=== PATIENT | female | born 1940 | race Caucasian/White ===

== ENCOUNTER 2018-09-02 12:08 | Inpatient (IN) | payer OTHER ==
[2018-09-02] MEDS ORDERED: dilTIAZem HCL 125 MG/25 ML - 25 ML VIAL ONE (12:18)
--- NOTE | 2018-09-02 12:48 | PDOC ---
History of Present Illness - General History Source: Patient Exam Limitations: No Limitations <Valentin Almaguer - Last Filed: 09/02/18 13:25> - General History Source: Patient Exam Limitations: No Limitations <Agueda Ferraro - Last Filed: 09/02/18 14:03> - General Chief Complaint: Palpitations Stated Complaint: CHEST PAIN Time Seen by Provider: 09/02/18 12:17 - History of Present Illness Initial Comments: 09/02/18 13:01 The patient is a 78 year old female with a significant past medical history of Anemia, hypothyroidism, NIDDM, HLD, and HTN who present to the [facility] to the ED with one week of generalized weakness. As per patient she has been endorsing palpitations, shortness of breath, dehydration, and R arm pain radiating to her back, secondary to her symptoms. As per patient she went food shopping this morning and noticed that she could not catch her breath. The patient states, she quickly went to her PCP, Dr. Putnam, and was told to come to the ED after having an abnormal EKG and rapid Atrial fibrillation. Via EMS she received diltiazem 20mg IV x1, with rate control. The patient notes her chest discomfort, palpitations and SOB worsens when lying flat and alleviated when sitting up, usually sleeps with one pillow. Patient states she has a family history of CVA on maternal side (mom at 48). The patient denies taking any blood thinner, history of coronary disease or arrhythmias.. Denies fever, chills, dizziness, N, V, D, abdominal pain, bladder and bowel problems, leg swelling, No sick contacts or travel. No new changes in medications. No infectious or respiratory sx. Allergies: penicillins Past Medical History: Anemia, hypothyroidism, NIDDM, HLD, and HTN Social history: Lives with family. No smoking. No alcohol. No illicit drugs. Surgical history: None reported PCP: Cyrus Echavarria. (Valentin Almaguer) Past History <Valentin Almaguer - Last Filed: 09/02/18 13:25> - Past Medical History Anemia: Yes Asthma: No Cancer: No Cardiac Disorders: Yes (CAD, PALPITATION) CVA: No COPD: No CHF: No Dementia: No Diabetes: Yes (NIDDM) GI Disorders: No Disorders: No HTN: Yes Hypercholesterolemia: Yes Liver Disease: No Seizures: No Thyroid Disease: Yes (HYPO) - Suicide/Smoking/Psychosocial Hx Smoking History: Never smoked Have you smoked in the past 12 months: No Hx Alcohol Use: No Drug/Substance Use Hx: No Substance Use Type: None Hx Substance Use Treatment: No <Agueda Ferraro - Last Filed: 09/02/18 14:03> - Past Medical History Allergies/Adverse Reactions: Allergies Allergy/AdvReac Type Severity Reaction Status Date / Time Penicillins Allergy Intermediate Verified 09/02/18 12:12 Home Medications: Ambulatory Orders Atenolol [Tenormin -] 50 mg PO DAILY 10/12/14 Cyclobenzaprine HCl [Flexeril -] 10 mg PO TID PRN #21 tablet 10/12/14 Glimepiride 4 mg PO ASDIR 10/12/14 Levothyroxine [Synthroid -] 112 mcg PO DAILY 10/12/14 Naproxen [Naprosyn -] 500 mg PO BID PRN #14 tablet 10/12/14 Quinapril HCl [Accupril -] 10 mg PO DAILY 10/12/14 Simvastatin [Zocor -] 20 mg PO HS 10/12/14 metFORMIN HCL [Glucophage] 1,000 mg PO BID 10/12/14 Oxycodone HCl/Acetaminophen [Percocet 5-325 mg Tablet -] 1 combo PO Q6H PRN #14 tablet 10/19/14 Aspirin Coated [Ecotrin -] 81 mg PO DAILY 10/25/14 Cardiac Specific PMH - Complaint Specific PMHX Pacemaker: No <Agueda Ferraro - Last Filed: 09/02/18 14:03> Review of Systems - Review of Systems Able to Perform ROS?: Yes All Other Systems: Reviewed and Negative <Valentin Almaguer - Last Filed: 09/02/18 13:25> <Agueda Ferraro - Last Filed: 09/02/18 14:03> - Review of Systems Comments:: 09/02/18 13:02 Constitutional: (+) generalized weakness. no fevers or chills. HEENT: no headache or dizziness. No congestion. No visual/hearing disturbances. CVS: (+) palpitations. +chest pain. +palpitations. No syncope. Resp: (+)sob. +orthopnea. No cough. Gastrointestinal: no abdominal pain, nausea or vomiting. Genitourinary: no urinary sx, hematuria. MUSCULOSKELETAL: (+) R arm pain, back pain. No joint pain and swelling. No neck pain. SKIN: no redness or skin changes, no discharge, No wounds. +rash Hematologic: no easy bruising/bleeding. NEUROLOGIC: No headache, dizziness, LOC or altered mental status. No focal weakness, numbness or tingling. Allergic/Immunologic: pcn allergies. No environmental allergies. All other systems reviewed and negative, or as documented in HPI. (Valentin Almaguer) *Physical Exam <Valentin Almaguer - Last Filed: 09/02/18 13:25> <Agueda Ferraro - Last Filed: 09/02/18 14:03> - Vital Signs Last Vital Signs Temp Pulse Resp BP Pulse Ox 98.6 F 75 18 127/90 100 09/02/18 12:08 09/02/18 13:30 09/02/18 13:30 09/02/18 13:30 09/02/18 13:30 - Physical Exam Comments: 09/02/18 13:02 General: Well appearing, awake and alert, NAD. HEENT: (+) bilateral upper lid xanthelasma. NCAT, PERRL, EOMI, clear conjunctiva, anicteric, moist mucous membranes, clear oropharynx, no oral lesions. Neck: neck supple, FROM Resp: CTAB, normal and even respirations, no respiratory distress CVS: (+) irregular regular heart rhythm, no murmurs, 2+ peripheral pulses throughout, no peripheral edema Abdomen: soft, NTND, no peritoneal signs. Back: normal inspection and ROM. no midline tenderness. (+) point tenderness on R shoulder posterior scapula. MSK: no edema, BALLARD x4, ROM intact. No clubbing or cyanosis. normal bulk and tone. Extremities: no calf tenderness Neuro: alert, oriented appropriately; no focal neurologic deficits Skin:(+) excoriation and dry, nonvesicular/nonpruritic/nonpurulent rash on R mid thoracic region, warm and well perfused, cap refill <2 sec, normal color (RosinaValentin) Heart Score/ECG Review <Valentin Almaguer - Last Filed: 09/02/18 13:25> #1 ECG reviewed & interpreted by me at: 12:05 General ECG Interpretation: Normal Rate Compared to previous ECG there are: Changes noted <JasmineAgueda Bruno - Last Filed: 09/02/18 14:03> #1 09/02/18 12:55 EKG atrial fibrillation at 79 bpm, no interval abnormalities, narrow QRS, ST and T wave segments and morphology normal. Nonspecific T wave abnormalities/TWI in III only, no contiguous lead changes - changed from prior. (Agueda Ferraro) - Procedure Monitoring Vital Signs: Procedure Monitoring Vital Signs Temperature 98.6 F 09/02/18 12:08 Pulse Rate 75 09/02/18 13:30 Respiratory Rate 18 09/02/18 13:30 Blood Pressure 127/90 09/02/18 13:30 O2 Sat by Pulse Oximetry (%) 100 09/02/18 13:30 Procedures <Valentin Almaguer - Last Filed: 09/02/18 13:25> - Bedside Ultrasound Bedside Ultrasound: Cardiac <Agueda Ferraro - Last Filed: 09/02/18 14:03> - Bedside Ultrasound Remarks: 09/02/18 14:02 POCUS echo and thoracic exam performed and documented/saved, indication includes chest pain/dyspnea. views obtained (PSLA, PSS, A4, SX, IVC, bilateral lung short). Findings include normal EF on visual estimation, no pericardial or pleural effusion, primarily A lines, no FWMA, plethoric IVC with no collapse. Normal aortic root <4cm. RV<LV. Impression: no acute findings, arrhythmia/Afib noted. (Agueda Ferraro) ED Treatment Course - LABORATORY CBC & Chemistry Diagram: 09/02/18 12:53 09/02/18 12:53 <Valentin Almaguer - Last Filed: 09/02/18 13:25> - LABORATORY CBC & Chemistry Diagram: 09/02/18 12:53 09/02/18 12:53 <Agueda Ferraro - Last Filed: 09/02/18 14:03> - ADDITIONAL ORDERS Additional order review: Laboratory Results 09/02/18 09/02/18 09/02/18 12:53 12:53 12:53 PT with INR 13.70 H INR 1.16 H PTT (Actin FS) 27.4 Sodium 136 Potassium 4.9 Chloride 104 Carbon Dioxide 24 Anion Gap 8 BUN 24 H Creatinine 0.8 Creat Clearance w eGFR 69.74 Random Glucose 207 H Calcium 8.3 L Magnesium 1.9 Ferritin 7.3 L Total Bilirubin 0.6 AST 39 H ALT 46 Alkaline Phosphatase 112 Creatine Kinase 46 Troponin I 0.07 H B-Natriuretic Peptide 1996.5 H Total Protein 6.6 Albumin 3.3 L TSH 3.01 09/02/18 12:53 RBC 3.60 MCV 76.4 L MCHC 31.6 L RDW 18.1 H MPV 9.9 Neutrophils % 72.9 Lymphocytes % 18.3 Monocytes % 6.2 Eosinophils % 2.0 Basophils % 0.6 - RADIOLOGY Radiology Studies Ordered: Category Date Time Status CHEST X-RAY PORTABLE* [RAD] Stat Radiology 09/02/18 12:18 Taken - Medications Given in the ED: ED Medications Discontinued Medications Generic Name Dose Route Start Last Admin Trade Name Freq PRN Reason Stop Dose Admin Diltiazem HCl 60 mg 09/02/18 12:50 09/02/18 13:33 Cardizem - PO 09/02/18 12:51 60 mg ONCE ONE Administration Medical Decision Making <Valentin Almaguer - Last Filed: 09/02/18 13:25> - Critical Care Time Total Critical Care Time (minutes): 40 (rapid atrial fibrillation) Critical Care Statement: The care of this patient involved high complexity decision making to prevent further life threatening deterioration of the patient 's condition and/or to evaluate & treat vital organ system(s) failure or risk of failure. <Agueda Ferraro - Last Filed: 09/02/18 14:03> - Medical Decision Making 09/02/18 12:47 I, Agueda Ferraro MD, attest that this document has been prepared under my direction and personally reviewed by me in its entirety. I further attest, that it accurately reflects all work, treatment, procedures and medical decision -making performed by me. See HPI for details DDx chest pain: ACS, coronary vasospasm, NSTEMI, arrhythmia,Afib, unstable angina, Zoster, PE, dissection, PUD, esophageal spasm, GERD, gastritis, costochondritis, pneumonia, pleurisy, pericarditis/myocarditis. dehydration, electrolyte/metabolic derangements. clinically doubt PE or dissection with exam. no infectious sx to suggest flu or pna. rash on right side of thorax does not appear to be like zoster, noninfectious, no crusting or purulence or appearance suspicious for zoster rash. Vital signs reviewed, wnl. Afib rate controlled at 80 bpm on tele monitor Prior notes reviewed, including admissions, discharges and consultations. laboratory results and imaging reviewed, basic labs and lytes wnl, notable for: - anemia, per pt baseline Hb 9. today Hb 8.7/27.5 - with low MCV <80, c/w microcytic anemia. guaiac negative, send off anemia workup labs. pt states she has been anemic " all my life" and has a gene predisposing her to anemia (thalassemia), refused colonoscopy in the past CXR_ Cardiac panel_Positive trop 0.07, ASA administered. BNP also elevated, unclear if new onset cardiomyopathy as well or trop/bnp related to her new onset Afib. arrhythmia can lead to trop leak, +NSTEMI without EKG changes, trend. EKG atrial fibrillation at 79 bpm, no interval abnormalities, narrow QRS, ST and T wave segments and morphology normal. Nonspecific T wave abnormalities/TWI in III only, no contiguous lead changes - no prior. ED course: ASA, on fluids, given diltiazem by EMS for rate controlled. remains on tele monitor, rate controlled Afib <100 bpm. given PO diltiazem. CHADS VASC score 5, will need anticoagulation cards cs Dr Jonah licona echo with afib noted, normal EF on visual estimation, no effusion, RV<LV, normal Ao root. lung sliding present, A line profile and no effusion. Admit for new onset Afib, cards cs, AC, continued rate control, tele monitor, r/ o ACS given NSTEMI/Afib and full echo. Discussed results and management plan with pt and family member at bedside, agree with impression and plan 09/02/18 14:03 (Agueda Ferraro) *DC/Admit/Observation/Transfer <Valentin Almaguer - Last Filed: 09/02/18 13:25> - Discharge Dispostion Decision to Admit order: Yes <Agueda Ferraro - Last Filed: 09/02/18 14:03> Diagnosis at time of Disposition: NSTEMI (non-ST elevated myocardial infarction) Atrial fibrillation Qualifiers: Atrial fibrillation type: unspecified Qualified Code(s): I48.91 - Unspecified atrial fibrillation - Discharge Dispostion Condition at time of disposition: Guarded Decision to Admit order Date/Time: Decision to Admit Order Category Date Time Status Decision to Admit to Hospital Routine Admission 09/02/18 14:01 Ordered 09/02/18 14:02 (Agueda Ferraro) - Referrals Referrals: Cyrus Putnam MD [Primary Care Provider] - - Attestations Scribe Attestion: 09/02/18 13:02 Documentation prepared by Valentin Almaguer, acting as medical microbiologist for Agueda Ferraro MD, MD (Valentin Almaguer)
[2018-09-02] MEDS ORDERED: dilTIAZem HCL 60 MG TABLET (FP) PO ONE (12:50)
[2018-09-02 13:01] LABS: BASO % 0.6 % (0-2.0); HEMATOCRIT 27.5 % (32.4-45.2); HEMOGLOBIN 8.7 GM/dL (10.7-15.3); LYMPH % 18.3 % (8-40); MCH 24.1 pg (25.7-33.7); MCHC 31.6 g/dl (32.0-36.0); MEAN CELL VOLUME 76.4 fl (80-96); MEAN PLT VOLUME 9.9 fl (7.5-11.1); MONO % 6.2 % (3.8-10.2); NEUT % 72.9 % (42.8-82.8); PLATELET COUNT 287 K/MM3 (134-434); RDW 18.1 % (11.6-15.6); WHITE BLOOD COUNT 5.7 K/mm3 (4.0-10.0)
[2018-09-02 13:21] LABS: INR 1.16 (0.83-1.09); PROTHROMBIN TIME (PATIENT) 13.7 SEC (9.7-13.0)
[2018-09-02 13:24] LABS: ACTIVATED PTT 27.4 SECONDS (25.2-36.5)
[2018-09-02] MEDS ORDERED: dilTIAZem HCL 60 MG TABLET (FP) ONE ×2 (13:25→19:01)
[2018-09-02 13:38] LABS: ALBUMIN 3.3 g/dl (3.4-5.0); ALK PHOS 112 U/L (45-117); ANION GAP 8 MMOL/L (8-16); BILIRUBIN,TOTAL 0.6 mg/dL (0.2-1); BLOOD UREA NITROGEN 24 mg/dL (7-18); CALCIUM 8.3 mg/dL (8.5-10.1); CHLORIDE 104 mmol/L (98-107); CO2 24 mmol/L (21-32); CREATININE 0.8 mg/dL (0.55-1.3); GLUCOSE,RANDOM 207 mg/dL (74-106); MAGNESIUM 1.9 mg/dL (1.8-2.4); N-TERMINAL BNP 1996.5 pg/ml (5-450); POTASSIUM 4.9 mmol/L (3.5-5.1); SGOT/AST 39 U/L (15-37); SGPT/ALT 46 U/L (13-61); SODIUM 136 mmol/L (136-145); TOT PROT 6.6 g/dl (6.4-8.2)
[2018-09-02] MEDS ORDERED: ASPIRIN 81 MG CHEWABLE TABLETS PO ONE (13:40)
[2018-09-02] MEDS ORDERED: dilTIAZem HCL 50 MG/10 ML - 10 ML VIAL IVPUSH ONE (14:00)
[2018-09-02] MEDS ORDERED: ASPIRIN 81 MG CHEWABLE TABLETS ONE (14:06)
[2018-09-02] MEDS ORDERED: dilTIAZem HCL 50 MG/10 ML - 10 ML VIAL ONE (14:06)
--- NOTE | 2018-09-02 14:41 | CON.CARD ---
Consult Consult Specialty:: Cardiology Referred by:: Medicine Reason for Consultation:: afib - History of Present Illness Chief Complaint: dyspnea, palpitations History of Present Illness: 78F h/o anemia, hypothyroidism, DM, HLD, HTN p/w weakness, palps, dyspnea. Started a week ago, feeling palps, dyspnea, R arm pain radiating to the back. Also dyspnea worse with lying down. Was walking this morning and felt short of breath, went to see Dr. Putnam and was in afib with RVR. Received diltiazem 20mg IV x1 by EMS with rate improved, received PO diltiazem here with improved rate control. Currently no complaints, no chest pain, palps, dizziness, lightheadedness, dyspnea. - History Source History Provided By: Patient - Alcohol/Substance Use Hx Alcohol Use: No - Smoking History Smoking history: Never smoked Have you smoked in the past 12 months: No Home Medications - Allergies Allergies/Adverse Reactions: Allergies Allergy/AdvReac Type Severity Reaction Status Date / Time Penicillins Allergy Intermediate Verified 09/02/18 12:12 - Home Medications Home Medications: Ambulatory Orders Atenolol [Tenormin -] 50 mg PO DAILY 10/12/14 Cyclobenzaprine HCl [Flexeril -] 10 mg PO TID PRN #21 tablet 10/12/14 Glimepiride 4 mg PO ASDIR 10/12/14 Levothyroxine [Synthroid -] 112 mcg PO DAILY 10/12/14 Naproxen [Naprosyn -] 500 mg PO BID PRN #14 tablet 10/12/14 Quinapril HCl [Accupril -] 10 mg PO DAILY 10/12/14 Simvastatin [Zocor -] 20 mg PO HS 10/12/14 metFORMIN HCL [Glucophage] 1,000 mg PO BID 10/12/14 Oxycodone HCl/Acetaminophen [Percocet 5-325 mg Tablet -] 1 combo PO Q6H PRN #14 tablet 10/19/14 Aspirin Coated [Ecotrin -] 81 mg PO DAILY 10/25/14 Family Disease History - Family Disease History Family History: Unremarkable Review of Systems - Review of Systems Constitutional: reports: No Symptoms Eyes: reports: No Symptoms HENT: reports: No Symptoms Neck: reports: No Symptoms Cardiovascular: reports: No Symptoms Respiratory: reports: No Symptoms Gastrointestinal: reports: No Symptoms Genitourinary: reports: No Symptoms Musculoskeletal: reports: No Symptoms Integumentary: reports: No Symptoms Neurological: reports: No Symptoms Endocrine: reports: No Symptoms Hematology/Lymphatic: reports: No Symptoms Psychiatric: reports: No Symptoms Vital Signs: Vital Signs Temperature 98.6 F 09/02/18 12:08 Pulse Rate 75 09/02/18 13:30 Respiratory Rate 18 09/02/18 13:30 Blood Pressure 127/90 09/02/18 13:30 O2 Sat by Pulse Oximetry (%) 100 09/02/18 13:30 Constitutional: Yes: Well Nourished, No Distress, Calm Eyes: Yes: Conjunctiva Clear, EOM Intact HENT: Yes: Atraumatic, Normocephalic Neck: Yes: Supple, Trachea Midline Respiratory: Yes: Regular, CTA Bilaterally Gastrointestinal: Yes: Normal Bowel Sounds, Soft Cardiovascular: Yes: Pulse Irregular JVD: No Carotid Bruit: No PMI: Non-Displaced Heart Sounds: Yes: S1, S2 Murmur: No: Systolic Murmur Musculoskeletal: No: Back Pain Extremities: No: Cold Edema: No Peripheral Pulses WNL: Yes Peripheral Pulses: 2+ Left Doralis Pedis, 2+ Right Dorsalis Pedis Integumentary: No: Jaundice Neurological: Yes: Alert, Oriented Psychiatric: No: Agitated - Other Data Labs, Other Data: CBC, BMP 09/02/18 12:53 09/02/18 12:53 INR, PTT INR 1.16 (0.83-1.09) H 09/02/18 12:53 Troponin, BNP 09/02/18 12:53 Troponin I 0.07 H B-Natriuretic Peptide 1996.5 H Troponin, BNP 09/02/18 12:53 Troponin I 0.07 H B-Natriuretic Peptide 1996.5 H Assessment/Plan EKG: afib rate 79 bpm, no ischemic changes CXR: no acute process tele: afib with rate 130s earlier today, now afib with rate 80s 78F h/o anemia, hypothyroidism, DM, HLD, HTN p/w weakness, palps, dyspnea afib - rate controlled after receiving IV and PO dilt - continue home atenolol, start diltiazem 60 mg PO Q6H - if rate okay, transition to daily dosing of long acting diltiazem in AM - [id number] 5 - start eliquis 5 mg BID, advised patient and family members of risk of bleeding, agree to start anticoagulation Shortness of breath, right arm pain, elevated BNP - EKG no ischemic changes, trop indeterminate - less likely ACS - echo ordered - now resolved with rate controlled - euvolemic on exam, defer diuretics at this point anemia - reportedly at baseline - close monitoring H/H as outpatient as she is starting AC HTN - stable continue current meds HLD - cont statin
[2018-09-02] MEDS ORDERED: ACETAMINOPHEN 325 MG TABLET (FP) PO PRN (15:39)
--- NOTE | 2018-09-02 15:55 | HP ---
Admitting History and Physical - Primary Care Physician PCP: Cyrus Putnam - Admission Chief Complaint: I felt sick History of Present Illness: Mrs Garcia is a very pleasant 78 year old female who comes in from Dr Putnam' s office for new onset atrial fibrillation. She states that at the beginning of the week she began to feel tired and short of breath. She says that she felt it mainly on exertion but sometimes at rest. However Wednesday night she woke up with severe shortness of breath, chest pressure, diaphoresis, and a sense of impending doom. She does not know how long it lasted but decided to go back to sleep. After this her symptoms became progressively worse. She became lightheaded and short of breath on minimal exertion, but she did not pass out. She had chest pressure on exertion as well. She also felt short of breath when lying down and this improved with her sitting up. She felt extremely fatigued and weak all the time and this did not improve with sleep. She was at the store today doing food shopping where she felt like she was almost going to pass out, so she went to see Dr Putnam for evaluation and was found to have atrial fibrillation. She was sent over for further evaluation. Here she received aspirin and diltiazem and now says she feels back to normal. She denies fevers, chills, coughing, abdominal pain, nausea, vomiting, diarrhea, constipation, difficulty or pain on urination, or swelling. History Source: Patient Limitations to Obtaining History: No Limitations - Past Medical History Cardiovascular: Yes: HTN, Hyperlipdemia Rheumatology: Yes: Lupus (dormant) Endocrine: Yes: Hypothyroidism - Past Surgical History Past Surgical History: Yes: None - Smoking History Smoking history: Never smoked Have you smoked in the past 12 months: No - Alcohol/Substance Use Hx Alcohol Use: No History of Substance Use: reports: None - Social History Usual Living Arrangement: Yes: With Spouse ADL: Independent History of Recent Travel: No Home Medications - Allergies Allergies/Adverse Reactions: Allergies Allergy/AdvReac Type Severity Reaction Status Date / Time Penicillins Allergy Intermediate Verified 09/02/18 12:12 - Home Medications Home Medications: Ambulatory Orders Atenolol [Tenormin -] 50 mg PO DAILY 10/12/14 Cyclobenzaprine HCl [Flexeril -] 10 mg PO TID PRN #21 tablet 10/12/14 Glimepiride 4 mg PO ASDIR 10/12/14 Levothyroxine [Synthroid -] 112 mcg PO DAILY 10/12/14 Naproxen [Naprosyn -] 500 mg PO BID PRN #14 tablet 10/12/14 Quinapril HCl [Accupril -] 10 mg PO DAILY 10/12/14 Simvastatin [Zocor -] 20 mg PO HS 10/12/14 metFORMIN HCL [Glucophage] 1,000 mg PO BID 10/12/14 Oxycodone HCl/Acetaminophen [Percocet 5-325 mg Tablet -] 1 combo PO Q6H PRN #14 tablet 10/19/14 Aspirin Coated [Ecotrin -] 81 mg PO DAILY 10/25/14 Family Disease History - Family Disease History Family Disease History: Other: Sister (renal failure) Other Family History: multiple family members with acute CVA Review of Systems Findings/Remarks: Full review of systems obtained, as per HPI and otherwise negative. Physical Examination Vital Signs: Vital Signs Temperature 37.0 C 09/02/18 12:08 Pulse Rate 75 09/02/18 13:30 Respiratory Rate 18 09/02/18 13:30 Blood Pressure 127/90 09/02/18 13:30 O2 Sat by Pulse Oximetry (%) 100 09/02/18 13:30 Constitutional: Yes: Well Nourished, No Distress, Calm Eyes: Yes: Conjunctiva Clear, EOM Intact, PERRL HENT: Yes: Atraumatic, Normocephalic Cardiovascular: Yes: Pulse Irregular. No: Tachycardia, Gallop, Murmur, Rub Respiratory: Yes: Regular, CTA Bilaterally. No: Rales, Rhonchi, Wheezes Gastrointestinal: Yes: Normal Bowel Sounds, Soft. No: Distention, Tenderness Extremities: Yes: WNL Edema: No Labs: CBC, BMP 09/02/18 12:53 09/02/18 12:53 Imaging - Results Chest X-ray: Report Reviewed, Image Reviewed EKG: Image Reviewed Problem List - Problems (1) Atrial fibrillation Assessment/Plan: -new onset symptomatic atrial fibrillation with rvr -currently rate controlled after diltiazem -case d/w Dr Mckenzie -admit to telemetry -cardiac enzymes x3, first set negative -ECHO ordered -start diltiazem 60mg q6h and eliquis 5mg bid Code(s): I48.91 - UNSPECIFIED ATRIAL FIBRILLATION Qualifiers: Atrial fibrillation type: unspecified Qualified Code(s): I48.91 - Unspecified atrial fibrillation (2) HTN (hypertension) Assessment/Plan: -on atenolol and quinapril as an outpatient -stop atenolol -continue quinapril -started on diltiazem -monitor, if becomes hypotensive will stop quinapril Code(s): I10 - ESSENTIAL (PRIMARY) HYPERTENSION (3) HLD (hyperlipidemia) Assessment/Plan: -check lipid panel in am -continue statin Code(s): E78.5 - HYPERLIPIDEMIA, UNSPECIFIED (4) Hypothyroid Assessment/Plan: -check TSH and FT4 -continue levothyroxine 112 mcg currently Code(s): E03.9 - HYPOTHYROIDISM, UNSPECIFIED (5) Diabetes Assessment/Plan: -continue metformin -diabetic diet -monitor glucose on bmp Code(s): E11.9 - TYPE 2 DIABETES MELLITUS WITHOUT COMPLICATIONS (6) Anemia Assessment/Plan: -patient says chronic -monitor since starting eliquis -follow up anemia labs Code(s): D64.9 - ANEMIA, UNSPECIFIED (7) Lupus Assessment/Plan: -dormant per patient Code(s): M32.9 - SYSTEMIC LUPUS ERYTHEMATOSUS, UNSPECIFIED
[2018-09-02] MEDS ORDERED: metFORMIN HCL 500 MG TABLET (FP) ONE ×2 (17:11→17:25)
[2018-09-02] MEDS: GLIMEPIRIDE 4 MG TABLET (FP) PO SCH (17:29)
[2018-09-02] MEDS: metFORMIN HCL 500 MG TABLET (FP) PO SCH (17:29)
[2018-09-02] MEDS: dilTIAZem HCL 60 MG TABLET (FP) PO SCH ×2 (19:16→23:04)
[2018-09-02] MEDS: ATORVASTATIN CA 10 MG TABLET (FP) PO SCH (22:14)
[2018-09-02] MEDS: APIXABAN 5 MG TABLET PO SCH (22:14)
[2018-09-03 04:12] LABS: SERUM IRON SATURATION 5 % (15-55); TOTAL IRON BINDING CAPACITY 378 ug/dL (250-450); UIBC 359 ug/dL (118-369)
[2018-09-03] MEDS: LEVOTHYROXINE NA 112 MCG TABLET (FP) PO SCH (06:22)
[2018-09-03] MEDS: metFORMIN HCL 500 MG TABLET (FP) PO SCH ×2 (06:22→17:43)
[2018-09-03] MEDS: GLIMEPIRIDE 4 MG TABLET (FP) PO SCH ×2 (06:22→17:44)
[2018-09-03] MEDS: dilTIAZem HCL 60 MG TABLET (FP) PO SCH ×4 (06:23→23:03)
[2018-09-03 07:31] LABS: BASO % 0.5 % (0-2.0); EOS % 3.5 % (0-4.5); HEMATOCRIT 24.2 % (32.4-45.2); HEMOGLOBIN 7.7 GM/dL (10.7-15.3); MCH 24.1 pg (25.7-33.7); MCHC 31.9 g/dl (32.0-36.0); MEAN CELL VOLUME 75.5 fl (80-96); MEAN PLT VOLUME 10.4 fl (7.5-11.1); MONO % 8.8 % (3.8-10.2); NEUT % 61.2 % (42.8-82.8); PLATELET COUNT 203 K/MM3 (134-434); RBC 3.21 M/mm3 (3.60-5.2); WHITE BLOOD COUNT 5.8 K/mm3 (4.0-10.0)
[2018-09-03 08:00] LABS: ANION GAP 7 MMOL/L (8-16); BLOOD UREA NITROGEN 20 mg/dL (7-18); CHLORIDE 106 mmol/L (98-107); CHOLESTEROL 88 mg/dL (50-200); CO2 26 mmol/L (21-32); CREATININE 0.6 mg/dL (0.55-1.3); GLUCOSE,RANDOM 95 mg/dL (74-106); HDL CHOLESTEROL 27 mg/dL (40-60); MAGNESIUM 1.8 mg/dL (1.8-2.4); PHOSPHOROUS 4.2 mg/dL (2.5-4.9); POTASSIUM 4.2 mmol/L (3.5-5.1); SODIUM 139 mmol/L (136-145); TRIGLYCERIDES 79 mg/dL (0-150)
[2018-09-03] MEDS ORDERED: QUINAPRIL HCL 10 MG TABLET (FP) PO SCH (10:00)
--- NOTE | 2018-09-03 10:01 | PN ---
Progress Note (short form) - Note Progress Note: s: occasional palps. no chest pain, dyspnea, orthopnea, chest pain no cigs Current Medications Acetaminophen (Tylenol -) 650 mg PO Q4H PRN PRN Reason: FEVER Apixaban (Eliquis -) 5 mg PO BID [facility] Last Admin: 09/02/18 22:14 Dose: 5 mg Atorvastatin Calcium (Lipitor -) 10 mg PO HS [facility] Last Admin: 09/02/18 22:14 Dose: 10 mg Diltiazem HCl (Cardizem -) 60 mg PO Q6HPO [facility] Last Admin: 09/03/18 06:23 Dose: 60 mg Glimepiride (Amaryl -) 4 mg PO BIDAC [facility] Last Admin: 09/03/18 06:22 Dose: 4 mg Levothyroxine Sodium (Synthroid -) 112 mcg PO DAILY@0700 [facility] Last Admin: 09/03/18 06:22 Dose: 112 mcg Metformin HCl (Glucophage -) 1,000 mg PO BIDAC [facility] Last Admin: 09/03/18 06:22 Dose: 1,000 mg Vital Signs Period Temp Pulse Resp BP Sys/Crandall Pulse Ox Last 24 Hr 97.9 F-98.6 F 75-151 18-20 110-151/59-96 99-100 Constitutional: Yes: Well Nourished, No Distress, Calm Eyes: Yes: Conjunctiva Clear, EOM Intact HENT: Yes: Atraumatic, Normocephalic Neck: Yes: Supple, Trachea Midline Respiratory: Yes: Regular, CTA Bilaterally Gastrointestinal: Yes: Normal Bowel Sounds, Soft Cardiovascular: Yes: Pulse Irregular JVD: No Carotid Bruit: No PMI: Non-Displaced Heart Sounds: Yes: S1, S2 Murmur: No: Systolic Murmur Musculoskeletal: No: Back Pain Extremities: No: Cold Edema: No Peripheral Pulses WNL: Yes Peripheral Pulses: 2+ Left Doralis Pedis, 2+ Right Dorsalis Pedis Integumentary: No: Jaundice Neurological: Yes: Alert, Oriented Psychiatric: No: Agitated Assessment/Plan EKG: afib rate 79 bpm, no ischemic changes CXR: no acute process tele: afib with rate 90s-100s, episodes of RVR to 150s 78F h/o anemia, hypothyroidism, DM, HLD, HTN p/w weakness, palps, dyspnea afib - rate controlled after receiving IV and PO dilt - episodes of RVR on tele, patient complaining of palps - continue diltiazem 60 mg PO Q6H, start metoprolol succinate 25 mg BID for improved rate control - [id number] - start eliquis 5 mg BID, advised patient and family members of risk of bleeding, agree to start anticoagulation elevated trop - EKG no ischemic changes, trop indeterminate range with flat trend - less likely ACS - echo pending Shortness of breath, right arm pain, elevated BNP - echo ordered - now resolved with rate controlled - euvolemic on exam, defer diuretics at this point anemia - H/H 8.7/27.5->7.7/24.2 today - has not been worked up in the past - cont eliquis, discussed with Dr. Haley - IV iron infusion, considering GI workup patient has refused in the past, d/w patient importance of anemia workup given indication for AC HTN - stopped home quinapril, monitoring on metoprolol and diltiazem HLD - cont statin
[2018-09-03] MEDS: APIXABAN 5 MG TABLET PO SCH ×2 (10:22→23:03)
--- NOTE | 2018-09-03 10:54 | PN ---
Progress Note, Physician Chief Complaint: Ms Garcia is still feeling weak and tired today. Denies cp, sob, n/v. - Current Medication List Current Medications: Active Medications Acetaminophen (Tylenol -) 650 mg PO Q4H PRN PRN Reason: FEVER Apixaban (Eliquis -) 5 mg PO BID [facility] Last Admin: 09/03/18 10:22 Dose: 5 mg Atorvastatin Calcium (Lipitor -) 10 mg PO HS [facility] Last Admin: 09/02/18 22:14 Dose: 10 mg Diltiazem HCl (Cardizem -) 60 mg PO Q6HPO [facility] Last Admin: 09/03/18 06:23 Dose: 60 mg Glimepiride (Amaryl -) 4 mg PO BIDAC [facility] Last Admin: 09/03/18 06:22 Dose: 4 mg Iron Sucrose 200 mg/ Sodium (Chloride) 100 mls @ 200 mls/hr IVPB ONCE ONE Stop: 09/03/18 11:29 Levothyroxine Sodium (Synthroid -) 112 mcg PO DAILY@0700 [facility] Last Admin: 09/03/18 06:22 Dose: 112 mcg Metformin HCl (Glucophage -) 1,000 mg PO BIDAC [facility] Last Admin: 09/03/18 06:22 Dose: 1,000 mg Metoprolol Succinate (Toprol Xl -) 25 mg PO BID [facility] Pantoprazole Sodium (Protonix -) 40 mg PO DAILY [facility] - Objective Vital Signs: Vital Signs Temperature 36.6 C 09/03/18 06:00 Pulse Rate 133 H 09/03/18 08:56 Respiratory Rate 18 09/03/18 09:00 Blood Pressure 121/96 09/03/18 08:56 O2 Sat by Pulse Oximetry (%) 99 09/03/18 09:00 Constitutional: Yes: Well Nourished, No Distress, Calm Cardiovascular: Yes: Tachycardia, Pulse Irregular. No: Gallop, Murmur, Rub Respiratory: Yes: Regular, CTA Bilaterally. No: Rales, Rhonchi, Wheezes Gastrointestinal: Yes: Normal Bowel Sounds, Soft. No: Distention, Tenderness Extremities: Yes: WNL Edema: No Labs: CBC, BMP 09/03/18 05:30 09/03/18 05:30 INR, PTT INR 1.16 (0.83-1.09) H 09/02/18 12:53 Problem List - Problems (1) Atrial fibrillation Code(s): I48.91 - UNSPECIFIED ATRIAL FIBRILLATION Qualifiers: Atrial fibrillation type: unspecified Qualified Code(s): I48.91 - Unspecified atrial fibrillation (2) HTN (hypertension) Code(s): I10 - ESSENTIAL (PRIMARY) HYPERTENSION (3) HLD (hyperlipidemia) Code(s): E78.5 - HYPERLIPIDEMIA, UNSPECIFIED (4) Hypothyroid Code(s): E03.9 - HYPOTHYROIDISM, UNSPECIFIED (5) Diabetes Code(s): E11.9 - TYPE 2 DIABETES MELLITUS WITHOUT COMPLICATIONS (6) Anemia Code(s): D64.9 - ANEMIA, UNSPECIFIED (7) Lupus Code(s): M32.9 - SYSTEMIC LUPUS ERYTHEMATOSUS, UNSPECIFIED Assessment/Plan (1) Atrial fibrillation Assessment/Plan: -case d/w Dr Mckenzie -will add toprol xl 25mg bid -continue diltiazem -continue eliquis at this point Code(s): I48.91 - UNSPECIFIED ATRIAL FIBRILLATION Qualifiers: Atrial fibrillation type: unspecified Qualified Code(s): I48.91 - Unspecified atrial fibrillation (2) HTN (hypertension) Assessment/Plan: -stop quinapril -continue diltiazem and addition of toprol as above Code(s): I10 - ESSENTIAL (PRIMARY) HYPERTENSION (3) HLD (hyperlipidemia) Assessment/Plan: -continue lipitor Code(s): E78.5 - HYPERLIPIDEMIA, UNSPECIFIED (4) Hypothyroid Assessment/Plan: -continue levothyroxine Code(s): E03.9 - HYPOTHYROIDISM, UNSPECIFIED (5) Diabetes Assessment/Plan: -continue metformin -diabetic diet -monitor glucose on bmp Code(s): E11.9 - TYPE 2 DIABETES MELLITUS WITHOUT COMPLICATIONS (6) Anemia Assessment/Plan: -case d/w Dr Putnam -anemia is not chronic -patient has declined work up in past -now with significant iron deficiency anemia -d/w patient that she will need GI work up since on eliquis -she is reluctant but listened -will give IV iron today, patient said she could not tolerate po iron -check stool for occult blood as well Code(s): D64.9 - ANEMIA, UNSPECIFIED (7) Lupus Assessment/Plan: -dormant per patient Code(s): M32.9 - SYSTEMIC LUPUS ERYTHEMATOSUS, UNSPECIFIED
[2018-09-03] MEDS ORDERED: IRON SUCROSE INJECTION 200 MG in SODIUM CHLORIDE 90 ML IVPB ONE (11:00)
[2018-09-03] MEDS: metoPROLOL SUCCINATE 25 MG TAB.SR.24H (FP) PO SCH ×2 (12:23→23:03)
[2018-09-03] MEDS: PANTOPRAZOLE 40 MG TABLET (FP) PO SCH (12:23)
--- NOTE | 2018-09-03 17:12 | EKG ---
Test Reason : Blood Pressure : / mmHG Vent. Rate : 079 BPM Atrial Rate : 258 BPM P-R Int : 000 ms QRS Dur : 084 ms QT Int : 404 ms P-R-T Axes : 000 022 073 degrees QTc Int : 463 ms ATRIAL FIBRILLATION ABNORMAL ECG WHEN COMPARED WITH ECG OF 26-NOV-2000 08:31, ATRIAL FIBRILLATION HAS REPLACED SINUS RHYTHM NONSPECIFIC T WAVE ABNORMALITY NOW EVIDENT IN LATERAL LEADS QT HAS LENGTHENED Confirmed by BAIRON JAIMES, RUTHIE ([id number]) on 09/03/2018 5:12:10 PM Referred By: Confirmed By:RUTHIE WADDELL MD
[2018-09-03] MEDS: METOPROLOL TARTRATE 5 MG/5 ML VIAL IVPUSH PRN (18:39)
[2018-09-03] MEDS: ATORVASTATIN CA 10 MG TABLET (FP) PO SCH (23:03)
[2018-09-04] MEDS: metFORMIN HCL 500 MG TABLET (FP) PO SCH ×2 (06:39→16:59)
[2018-09-04] MEDS: GLIMEPIRIDE 4 MG TABLET (FP) PO SCH ×2 (06:39→16:59)
[2018-09-04] MEDS: LEVOTHYROXINE NA 112 MCG TABLET (FP) PO SCH (06:39)
[2018-09-04] MEDS: dilTIAZem HCL 60 MG TABLET (FP) PO SCH ×3 (06:39→17:01)
[2018-09-04 07:39] LABS: BASO % 0.8 % (0-2.0); EOS % 3.2 % (0-4.5); HEMATOCRIT 26.3 % (32.4-45.2); HEMOGLOBIN 8.3 GM/dL (10.7-15.3); LYMPH % 24.9 % (8-40); MCH 24.1 pg (25.7-33.7); MCHC 31.6 g/dl (32.0-36.0); MEAN CELL VOLUME 76.3 fl (80-96); MEAN PLT VOLUME 10.8 fl (7.5-11.1); MONO % 8.9 % (3.8-10.2); NEUT % 62.2 % (42.8-82.8); PLATELET COUNT 228 K/MM3 (134-434); RBC 3.45 M/mm3 (3.60-5.2); RDW 18.2 % (11.6-15.6); WHITE BLOOD COUNT 5.3 K/mm3 (4.0-10.0)
[2018-09-04 07:45] LABS: ALBUMIN 3.2 g/dl (3.4-5.0); ALK PHOS 89 U/L (45-117); ANION GAP 5 MMOL/L (8-16); BILIRUBIN,DIRECT 0.2 mg/dL (0.0-0.2); BILIRUBIN,TOTAL 0.4 mg/dL (0.2-1); BLOOD UREA NITROGEN 15 mg/dL (7-18); CALCIUM 8.2 mg/dL (8.5-10.1); CHLORIDE 104 mmol/L (98-107); CO2 28 mmol/L (21-32); CREATININE 0.7 mg/dL (0.55-1.3); GLUCOSE,RANDOM 146 mg/dL (74-106); MAGNESIUM 1.8 mg/dL (1.8-2.4); PHOSPHOROUS 3.7 mg/dL (2.5-4.9); SGOT/AST 14 U/L (15-37); SGPT/ALT 30 U/L (13-61); SODIUM 137 mmol/L (136-145); TOT PROT 6.3 g/dl (6.4-8.2)
[2018-09-04] MEDS: METOPROLOL TARTRATE 5 MG/5 ML VIAL IVPUSH PRN ×2 (07:50→17:44)
[2018-09-04] MEDS: metoPROLOL SUCCINATE 25 MG TAB.SR.24H (FP) PO SCH (09:08)
[2018-09-04] MEDS: APIXABAN 5 MG TABLET PO SCH ×2 (09:08→22:00)
[2018-09-04] MEDS: PANTOPRAZOLE 40 MG TABLET (FP) PO SCH (09:08)
[2018-09-04] MEDS ORDERED: metoPROLOL SUCCINATE 25 MG TAB.SR.24H (FP) PO ONE (10:19)
--- NOTE | 2018-09-04 10:19 | PN ---
Progress Note (short form) - Note Progress Note: s: no chest pain, dyspnea, orthopnea, chest pain. palps when she gets up to do something, feels her heart racing Current Medications Acetaminophen (Tylenol -) 650 mg PO Q4H PRN PRN Reason: FEVER Apixaban (Eliquis -) 5 mg PO BID [facility] Last Admin: 09/04/18 09:08 Dose: 5 mg Atorvastatin Calcium (Lipitor -) 10 mg PO HS [facility] Last Admin: 09/03/18 23:03 Dose: 10 mg Diltiazem HCl (Cardizem -) 60 mg PO Q6HPO [facility] Last Admin: 09/04/18 06:39 Dose: 60 mg Glimepiride (Amaryl -) 4 mg PO BIDAC [facility] Last Admin: 09/04/18 06:39 Dose: 4 mg Levothyroxine Sodium (Synthroid -) 112 mcg PO DAILY@0700 [facility] Last Admin: 09/04/18 06:39 Dose: 112 mcg Metformin HCl (Glucophage -) 1,000 mg PO BIDAC [facility] Last Admin: 09/04/18 06:39 Dose: 1,000 mg Metoprolol Succinate (Toprol Xl -) 25 mg PO BID [facility] Last Admin: 09/04/18 09:08 Dose: 25 mg Metoprolol Tartrate (Lopressor Injection -) 5 mg IVPUSH Q4H PRN PRN Reason: TACHYCARDIA Last Admin: 09/04/18 07:50 Dose: 5 mg Pantoprazole Sodium (Protonix -) 40 mg PO DAILY [facility] Last Admin: 09/04/18 09:08 Dose: 40 mg Vital Signs Period Temp Pulse Resp BP Sys/Crandall Pulse Ox Last 24 Hr 97.8 F-98.4 F 104-159 18-20 107-147/45-90 96-97 Constitutional: Yes: Well Nourished, No Distress, Calm Eyes: Yes: Conjunctiva Clear, EOM Intact HENT: Yes: Atraumatic, Normocephalic Neck: Yes: Supple, Trachea Midline Respiratory: Yes: Regular, CTA Bilaterally Gastrointestinal: Yes: Normal Bowel Sounds, Soft Cardiovascular: Yes: Pulse Irregular JVD: No Carotid Bruit: No PMI: Non-Displaced Heart Sounds: Yes: S1, S2 Murmur: No: Systolic Murmur Musculoskeletal: No: Back Pain Extremities: No: Cold Edema: No Peripheral Pulses WNL: Yes Peripheral Pulses: 2+ Left Doralis Pedis, 2+ Right Dorsalis Pedis Integumentary: No: Jaundice Neurological: Yes: Alert, Oriented Psychiatric: No: Agitated Assessment/Plan EKG: afib rate 79 bpm, no ischemic changes CXR: no acute process tele: afib with rate 90s-100s, brief episodes of RVR 120s-150s 78F h/o anemia, hypothyroidism, DM, HLD, HTN p/w weakness, palps, dyspnea afib - rate controlled after receiving IV and PO dilt - episodes of RVR on tele, patient complaining of palps - continue diltiazem 60 mg PO Q6H, start metoprolol succinate 25 mg BID for improved rate control - 09/04: inc metoprolol succinate to 50 mg BID, continue diltiazem - [id number] 5 - continue eliquis 5 mg BID elevated trop - EKG no ischemic changes, trop indeterminate range with flat trend - less likely ACS - echo pending Shortness of breath, right arm pain, elevated BNP - echo ordered - now resolved with rate controlled - euvolemic on exam, defer diuretics at this point anemia - H/H 8.7/27.5->7.7/24.2 day after admission - has not been worked up in the past - cont eliquis, discussed with Dr. Haley - IV iron infusion, considering GI workup patient has refused in the past, d/w patient importance of anemia workup given indication for AC HTN - stopped home quinapril, monitoring on metoprolol and diltiazem HLD - cont statin
--- NOTE | 2018-09-04 16:26 | PN ---
Progress Note, Physician Chief Complaint: Ms Garcia says she is feeling better today, says her weakness is much improved. No cp, sob, n/v. - Current Medication List Current Medications: Active Medications Acetaminophen (Tylenol -) 650 mg PO Q4H PRN PRN Reason: FEVER Apixaban (Eliquis -) 5 mg PO BID [facility] Last Admin: 09/04/18 09:08 Dose: 5 mg Atorvastatin Calcium (Lipitor -) 10 mg PO HS [facility] Last Admin: 09/03/18 23:03 Dose: 10 mg Diltiazem HCl (Cardizem -) 60 mg PO Q6HPO [facility] Last Admin: 09/04/18 11:48 Dose: 60 mg Glimepiride (Amaryl -) 4 mg PO BIDAC [facility] Last Admin: 09/04/18 06:39 Dose: 4 mg Levothyroxine Sodium (Synthroid -) 112 mcg PO DAILY@0700 [facility] Last Admin: 09/04/18 06:39 Dose: 112 mcg Metformin HCl (Glucophage -) 1,000 mg PO BIDAC [facility] Last Admin: 09/04/18 06:39 Dose: 1,000 mg Metoprolol Succinate (Toprol Xl -) 50 mg PO BID [facility] Metoprolol Tartrate (Lopressor Injection -) 5 mg IVPUSH Q4H PRN PRN Reason: TACHYCARDIA Last Admin: 09/04/18 07:50 Dose: 5 mg Pantoprazole Sodium (Protonix -) 40 mg PO DAILY [facility] Last Admin: 09/04/18 09:08 Dose: 40 mg - Objective Vital Signs: Vital Signs Temperature 36.9 C 09/04/18 14:00 Pulse Rate 117 H 09/04/18 14:00 Respiratory Rate 20 09/04/18 14:00 Blood Pressure 130/72 09/04/18 14:00 O2 Sat by Pulse Oximetry (%) 96 09/04/18 09:55 Constitutional: Yes: Well Nourished, No Distress, Calm Cardiovascular: Yes: Tachycardia, Pulse Irregular. No: Gallop, Murmur, Rub Respiratory: Yes: Regular, CTA Bilaterally. No: Rales, Rhonchi, Wheezes Gastrointestinal: Yes: Normal Bowel Sounds, Soft. No: Distention, Tenderness Extremities: Yes: WNL Edema: No Labs: CBC, BMP 09/04/18 06:00 09/04/18 06:00 INR, PTT INR 1.16 (0.83-1.09) H 09/02/18 12:53 Problem List - Problems (1) Atrial fibrillation Code(s): I48.91 - UNSPECIFIED ATRIAL FIBRILLATION Qualifiers: Atrial fibrillation type: unspecified Qualified Code(s): I48.91 - Unspecified atrial fibrillation (2) HTN (hypertension) Code(s): I10 - ESSENTIAL (PRIMARY) HYPERTENSION (3) HLD (hyperlipidemia) Code(s): E78.5 - HYPERLIPIDEMIA, UNSPECIFIED (4) Hypothyroid Code(s): E03.9 - HYPOTHYROIDISM, UNSPECIFIED (5) Diabetes Code(s): E11.9 - TYPE 2 DIABETES MELLITUS WITHOUT COMPLICATIONS (6) Anemia Code(s): D64.9 - ANEMIA, UNSPECIFIED (7) Lupus Code(s): M32.9 - SYSTEMIC LUPUS ERYTHEMATOSUS, UNSPECIFIED Assessment/Plan (1) Atrial fibrillation Assessment/Plan: -case d/w Dr Mckenzie -increase toprol xl to 50mg bid -continue diltiazem -continue eliquis at this point Code(s): I48.91 - UNSPECIFIED ATRIAL FIBRILLATION Qualifiers: Atrial fibrillation type: unspecified Qualified Code(s): I48.91 - Unspecified atrial fibrillation (2) HTN (hypertension) Assessment/Plan: -stop quinapril -continue diltiazem and addition of toprol as above Code(s): I10 - ESSENTIAL (PRIMARY) HYPERTENSION (3) HLD (hyperlipidemia) Assessment/Plan: -continue lipitor Code(s): E78.5 - HYPERLIPIDEMIA, UNSPECIFIED (4) Hypothyroid Assessment/Plan: -continue levothyroxine Code(s): E03.9 - HYPOTHYROIDISM, UNSPECIFIED (5) Diabetes Assessment/Plan: -continue metformin -diabetic diet -monitor glucose on bmp Code(s): E11.9 - TYPE 2 DIABETES MELLITUS WITHOUT COMPLICATIONS (6) Anemia Assessment/Plan: -s/p iron infusion -H/H improved and patient feels better -encouraging GI work up since will need to be anticoagulated -patient, now that she is feeling better, is more reluctant -will continue to stress importance of GI evaluate for anemia Code(s): D64.9 - ANEMIA, UNSPECIFIED (7) Lupus Assessment/Plan: -dormant per patient Code(s): M32.9 - SYSTEMIC LUPUS ERYTHEMATOSUS, UNSPECIFIED
[2018-09-04] MEDS: ATORVASTATIN CA 10 MG TABLET (FP) PO SCH (22:00)
[2018-09-05] MEDS: dilTIAZem HCL 60 MG TABLET (FP) PO SCH ×2 (00:44→06:32)
[2018-09-05] MEDS: LEVOTHYROXINE NA 112 MCG TABLET (FP) PO SCH (06:31)
[2018-09-05] MEDS: GLIMEPIRIDE 4 MG TABLET (FP) PO SCH ×2 (06:32→17:30)
[2018-09-05] MEDS: metFORMIN HCL 500 MG TABLET (FP) PO SCH ×2 (06:32→17:30)
[2018-09-05 06:48] LABS: BASO % 0.4 % (0-2.0); EOS % 3.8 % (0-4.5); HEMATOCRIT 24.8 % (32.4-45.2); LYMPH % 26.5 % (8-40); MCH 24.6 pg (25.7-33.7); MCHC 32.1 g/dl (32.0-36.0); MEAN CELL VOLUME 76.6 fl (80-96); MEAN PLT VOLUME 10.7 fl (7.5-11.1); NEUT % 60.3 % (42.8-82.8); PLATELET COUNT 204 K/MM3 (134-434); RBC 3.23 M/mm3 (3.60-5.2); RDW 18.1 % (11.6-15.6); WHITE BLOOD COUNT 6.1 K/mm3 (4.0-10.0)
[2018-09-05 07:04] LABS: ANION GAP 6 MMOL/L (8-16); BLOOD UREA NITROGEN 15 mg/dL (7-18); CALCIUM 8.4 mg/dL (8.5-10.1); CHLORIDE 106 mmol/L (98-107); CO2 27 mmol/L (21-32); CREATININE 0.6 mg/dL (0.55-1.3); GLUCOSE,RANDOM 132 mg/dL (74-106); MAGNESIUM 1.8 mg/dL (1.8-2.4); PHOSPHOROUS 4.2 mg/dL (2.5-4.9); POTASSIUM 3.8 mmol/L (3.5-5.1); SODIUM 139 mmol/L (136-145)
--- NOTE | 2018-09-05 09:34 | PN ---
Progress Note, Physician Chief Complaint: sob, palpit History of Present Illness: sob, palpit much better than on DOA--mild if moves around a lot. no cp no leg swelling no cigs - Current Medication List Current Medications: Active Medications Acetaminophen (Tylenol -) 650 mg PO Q4H PRN PRN Reason: FEVER Apixaban (Eliquis -) 5 mg PO BID [facility] Last Admin: 09/04/18 22:00 Dose: 5 mg Atorvastatin Calcium (Lipitor -) 10 mg PO HS [facility] Last Admin: 09/04/18 22:00 Dose: 10 mg Diltiazem HCl (Cardizem -) 60 mg PO Q6HPO [facility] Last Admin: 09/05/18 06:32 Dose: 60 mg Glimepiride (Amaryl -) 4 mg PO BIDAC [facility] Last Admin: 09/05/18 06:32 Dose: 4 mg Levothyroxine Sodium (Synthroid -) 112 mcg PO DAILY@0700 [facility] Last Admin: 09/05/18 06:31 Dose: 112 mcg Metformin HCl (Glucophage -) 1,000 mg PO BIDAC [facility] Last Admin: 09/05/18 06:32 Dose: 1,000 mg Metoprolol Succinate (Toprol Xl -) 50 mg PO BID [facility] Last Admin: 09/04/18 22:00 Dose: 50 mg Metoprolol Tartrate (Lopressor Injection -) 5 mg IVPUSH Q4H PRN PRN Reason: TACHYCARDIA Last Admin: 09/04/18 17:44 Dose: 5 mg Pantoprazole Sodium (Protonix -) 40 mg PO DAILY [facility] Last Admin: 09/04/18 09:08 Dose: 40 mg - Objective Vital Signs: Vital Signs Temperature 99.0 F 09/05/18 06:00 Pulse Rate 88 09/05/18 06:00 Respiratory Rate 20 09/05/18 06:00 Blood Pressure 130/73 09/05/18 06:00 O2 Sat by Pulse Oximetry (%) 96 09/04/18 21:40 Constitutional: Yes: No Distress, Calm Eyes: No: Sclera Icterus HENT: No: Nasal Congestion Cardiovascular: Yes: Pulse Irregular, S1, S2, Other (PMI non diplaced). No: Gallop, Murmur Respiratory: Yes: CTA Bilaterally. No: Accessory Muscle Use, Rales, Wheezes Gastrointestinal: Yes: Normal Bowel Sounds, Soft. No: Tenderness Musculoskeletal: Yes: Other (No kyphosis) Extremities: No: Cold Edema: No Integumentary: No: Jaundice Neurological: Yes: Alert, Oriented (x3) Psychiatric: No: Agitated Labs: CBC, BMP 09/05/18 05:30 09/05/18 05:30 INR, PTT INR 1.16 (0.83-1.09) H 09/02/18 12:53 Assessment/Plan EKG: afib rate 79 bpm, no ischemic changes CXR: no acute process tele: AF, HRs 80s-140s (frequently >100-110) 78F h/o anemia, hypothyroidism, DM, HLD, HTN p/w weakness, palps, dyspnea afib - rapid HR treated with diltiazem 60 mg PO Q6H, metoprolol succinate 50 mg BID ( increased dose on 09/04). - HR trend improved overall, though remains suboptimal and expect will be uncontrolled once out of hospital and active--incr diltiazem to 300 QD (CD) first dose today. continue same metoprolol - [id number] 5 - continue eliquis 5 mg BID, anemia w/u pending--mointor counts daily elevated trop - EKG no ischemic changes, trop indeterminate range with flat trend - not c/w ACS - echo pending Shortness of breath, right arm pain, elevated BNP - BNP slightly elevated 1900 (no priors). CXR clear - euvolemic on exam--deferring lasix - echo pending - sx's likely were due to afib--now resolved with rate controlled anemia - H/H 8.7/27.5->7.7/24.2 day after admission - has not been worked up in the past - cont eliquis, discussed with Dr. Haley - IV iron infusion, considering GI workup patient has refused in the past, d/w patient importance of anemia workup given indication for AC - counts stable - d/w'd pt her estimated risk of CVA, and risk of bleeding if has underlying GI tract source. explained that her chronic anemia for many yrs (? B12 injections in past) has apparently worsened, which is why dr stephens referred her for GI scopes. she states she refused procedure b/c was to be done in office setting, and more comfortable having it done in hospital. - agrees to GI w/u here. advised her we will wait until HR better controlled. HTN - stopped home quinapril, monitoring on metoprolol and diltiazem - bp controlled - same plan HLD - cont statin DM: -per hospitalist
[2018-09-05] MEDS: PANTOPRAZOLE 40 MG TABLET (FP) PO SCH (09:48)
[2018-09-05] MEDS: APIXABAN 5 MG TABLET PO SCH (09:48)
--- NOTE | 2018-09-05 11:07 | ECHO ---
Name: DELBERT BLOOM Exam:Adult Echocardiogram Study Date: 09/05/2018 07:48 AM Age: 78 yrs Reason For Study: A-Fib Height: 61 in Weight: 175 lb BSA: 1.8 m2 Procedure A complete two-dimensional transthoracic echocardiogram was performed (2D, M-mode, Doppler and color flow Doppler). Left Ventricle The left ventricle is normal in size. There is mild concentric left ventricular hypertrophy. Left collin tricular systolic function is normal. Ejection Fraction = 60-65%. No regional wall motion abnormalities noted. Right Ventricle The right ventricle is normal size. The right ventricular systolic function is normal. Atria The left atrium is moderately dilated. The right atrium is moderately dilated. Mitral Valve There is mild to moderate mitral annular calcification. There is moderate mitral regurgitation. Tricuspid Valve The tricuspid valve is normal in structure and function. There is moderate tricuspid regurgitation. P ulmonary artery systolic pressure is at least 54 mmHg assuming RA pressure of 15 mmHg (dilated IVC and <50% co llapse). Aortic Valve There is mild aortic sclerosis.;. Mild aortic regurgitation. Pulmonic Valve The pulmonic valve is not well visualized. Great Vessels The aortic root is normal size. Pericardium/Pleura There is no pericardial effusion. Interpretation Summary The left ventricle is normal in size. There is mild concentric left ventricular hypertrophy. Left ventricular systolic function is normal. No regional wall motion abnormalities noted. Ejection Fraction = 60-65%. The right ventricular systolic function is normal. The left atrium is moderately dilated. The right atrium is moderately dilated. There is moderate mitral regurgitation. There is moderate tricuspid regurgitation. Pulmonary artery systolic pressure is at least 54 mmHg assuming RA pressure of 15 mmHg (dilated IVC a nd <50% collapse) There is mild aortic sclerosis. Mild aortic regurgitation. There is no pericardial effusion. Previous study is not available for comparison Benigno Odell MD 09/05/2018 11:05 AM
--- NOTE | 2018-09-05 14:11 | CON.GI ---
Consult Consult Specialty:: GI Referred by:: Medicine Reason for Consultation:: anemia - History of Present Illness Chief Complaint: high pulse, OJEDA History of Present Illness: 78F with h/o DM, HTN, HL, hypothyroid admitted for new AF with RVR. Currently working on rate control and started on AC with Eliquis. GI consulted for microcytic anemia. Per patient longstanding. She reports h/o getting B12 shots and iron pills in the past. No prior endoscopic evaluation. Reports no change in bm. Not quite daily - depends on what she eats. No straining, no BRBPR. NO abdominal pain. No N/V, no recent weight loss. - History Source History Provided By: Patient Limitations to Obtaining History: No Limitations - Past Medical History Cardio/Vascular: Yes: HTN, Hyperlipdemia Rheumatology: Yes: Lupus (dormant) Endocrine: Yes: Hypothyroidism - Past Surgical History Past Surgical History: Yes: None - Alcohol/Substance Use Hx Alcohol Use: No History of Substance Use: reports: None - Smoking History Smoking history: Never smoked Have you smoked in the past 12 months: No - Social History ADL: Independent History of Recent Travel: No Home Medications - Allergies Allergies/Adverse Reactions: Allergies Allergy/AdvReac Type Severity Reaction Status Date / Time Penicillins Allergy Intermediate Verified 09/02/18 12:12 - Home Medications Home Medications: Ambulatory Orders Atenolol [Tenormin -] 50 mg PO DAILY 10/12/14 Cyclobenzaprine HCl [Flexeril -] 10 mg PO TID PRN #21 tablet 10/12/14 Glimepiride 4 mg PO ASDIR 10/12/14 Levothyroxine [Synthroid -] 112 mcg PO DAILY 10/12/14 Naproxen [Naprosyn -] 500 mg PO BID PRN #14 tablet 10/12/14 Quinapril HCl [Accupril -] 10 mg PO DAILY 10/12/14 Simvastatin [Zocor -] 20 mg PO HS 10/12/14 metFORMIN HCL [Glucophage] 1,000 mg PO BID 10/12/14 Oxycodone HCl/Acetaminophen [Percocet 5-325 mg Tablet -] 1 combo PO Q6H PRN #14 tablet 10/19/14 Aspirin Coated [Ecotrin -] 81 mg PO DAILY 10/25/14 Family Disease History - Family Disease History Family Disease History: Other: Sister (renal failure) Other Family History: multiple family members with acute CVA Review of Systems - Review of Systems Constitutional: reports: No Symptoms Eyes: reports: No Symptoms HENT: reports: No Symptoms Cardiovascular: reports: Chest Pain, Palpitations, Shortness of Breath Respiratory: reports: No Symptoms Gastrointestinal: reports: No Symptoms Musculoskeletal: reports: No Symptoms Neurological: reports: No Symptoms Hematology/Lymphatic: reports: No Symptoms Physical Exam-GI Vital Signs: Vital Signs Temperature 98.1 F 09/05/18 10:00 Pulse Rate 106 H 09/05/18 10:00 Respiratory Rate 20 09/05/18 10:00 Blood Pressure 134/74 09/05/18 10:00 O2 Sat by Pulse Oximetry (%) 95 09/05/18 10:00 Constitutional: Yes: Well Nourished, No Distress Eyes: Yes: WNL Cardiovascular: Yes: Tachycardia (irreg irreg), Murmur, Other ...Palpate: Yes: Soft. No: Tenderness ...Rectal Exam: Yes: Deferred Edema: No Neurological: Yes: Alert, Oriented Psychiatric: Yes: Alert, Oriented Labs: CBC, BMP 09/05/18 05:30 09/05/18 05:30 INR, PTT INR 1.16 (0.83-1.09) H 09/02/18 12:53 Assessment/Plan Microcytic anemia -- anemia may have triggered AF. Broad differential - h/o B12 and iron supplements brings suspicion of atrophic gastritis. Other possible etiologies include polyp vs ectasia vs neoplasm vs ulcer. - would check iron studies and B12 on next set of labs (ordered) - would plan for colonoscopy +/- EGD once rate is controlled to further assess anemia. Patient is amenable. R/B/L/A discussed including bleeding, infection, missed lesions, perforation requiring surgery, anesthesia reaction. - no indication for PPI at this time so will d/c - would hold Eliquis - if AC is desired, favor unfractionated heparin until time of endoscopic evaluation
[2018-09-05] MEDS ORDERED: PT OWN MED DRAWER 7, Y5N ONE (15:28)
[2018-09-05] MEDS ORDERED: HEPARIN NA (PORCINE) 5,000 UNITS/ML 1ML VIAL IVPUSH PRN ×2 (17:24)
--- NOTE | 2018-09-05 17:27 | PN ---
Progress Note, Physician Chief Complaint: Ms Garcia says she is feeling well. Still feeling palpitations but improving. No cp, sob, n/v. - Current Medication List Current Medications: Active Medications Acetaminophen (Tylenol -) 650 mg PO Q4H PRN PRN Reason: FEVER Apixaban (Eliquis -) 5 mg PO BID [facility] Last Admin: 09/05/18 09:48 Dose: 5 mg Atorvastatin Calcium (Lipitor -) 10 mg PO HS [facility] Last Admin: 09/04/18 22:00 Dose: 10 mg Diltiazem HCl (Cardizem Cd -) 300 mg PO DAILY [facility] Last Admin: 09/05/18 15:30 Dose: 300 mg Glimepiride (Amaryl -) 4 mg PO BIDAC [facility] Last Admin: 09/05/18 06:32 Dose: 4 mg Levothyroxine Sodium (Synthroid -) 112 mcg PO DAILY@0700 [facility] Last Admin: 09/05/18 06:31 Dose: 112 mcg Metformin HCl (Glucophage -) 1,000 mg PO BIDAC [facility] Last Admin: 09/05/18 06:32 Dose: 1,000 mg Metoprolol Succinate (Toprol Xl -) 50 mg PO BID [facility] Last Admin: 09/05/18 09:48 Dose: 50 mg Metoprolol Tartrate (Lopressor Injection -) 5 mg IVPUSH Q4H PRN PRN Reason: TACHYCARDIA Last Admin: 09/04/18 17:44 Dose: 5 mg - Objective Vital Signs: Vital Signs Temperature 36.8 C 09/05/18 14:09 Pulse Rate 120 H 09/05/18 14:09 Respiratory Rate 20 09/05/18 14:09 Blood Pressure 146/80 09/05/18 14:09 O2 Sat by Pulse Oximetry (%) 95 09/05/18 10:00 Constitutional: Yes: Well Nourished, No Distress, Calm Cardiovascular: Yes: Tachycardia, Pulse Irregular. No: Gallop, Murmur, Rub Respiratory: Yes: Regular, CTA Bilaterally. No: Rales, Rhonchi, Wheezes Gastrointestinal: Yes: Normal Bowel Sounds, Soft. No: Distention, Tenderness Extremities: Yes: WNL Edema: No Labs: CBC, BMP 09/05/18 05:30 09/05/18 05:30 INR, PTT INR 1.16 (0.83-1.09) H 09/02/18 12:53 Problem List - Problems (1) Atrial fibrillation Code(s): I48.91 - UNSPECIFIED ATRIAL FIBRILLATION Qualifiers: Atrial fibrillation type: unspecified Qualified Code(s): I48.91 - Unspecified atrial fibrillation (2) HTN (hypertension) Code(s): I10 - ESSENTIAL (PRIMARY) HYPERTENSION (3) HLD (hyperlipidemia) Code(s): E78.5 - HYPERLIPIDEMIA, UNSPECIFIED (4) Hypothyroid Code(s): E03.9 - HYPOTHYROIDISM, UNSPECIFIED (5) Diabetes Code(s): E11.9 - TYPE 2 DIABETES MELLITUS WITHOUT COMPLICATIONS (6) Anemia Code(s): D64.9 - ANEMIA, UNSPECIFIED (7) Lupus Code(s): M32.9 - SYSTEMIC LUPUS ERYTHEMATOSUS, UNSPECIFIED Assessment/Plan (1) Atrial fibrillation Assessment/Plan: -case d/w Dr Key -continue toprol xl 50mg bid -diltiazem changed to 300mg daily -GI note reviewed -will change eliquis to heparin gtt per GI request Code(s): I48.91 - UNSPECIFIED ATRIAL FIBRILLATION Qualifiers: Atrial fibrillation type: unspecified Qualified Code(s): I48.91 - Unspecified atrial fibrillation (2) HTN (hypertension) Assessment/Plan: -stop quinapril -continue diltiazem and addition of toprol as above -monitor Code(s): I10 - ESSENTIAL (PRIMARY) HYPERTENSION (3) HLD (hyperlipidemia) Assessment/Plan: -continue lipitor Code(s): E78.5 - HYPERLIPIDEMIA, UNSPECIFIED (4) Hypothyroid Assessment/Plan: -continue levothyroxine Code(s): E03.9 - HYPOTHYROIDISM, UNSPECIFIED (5) Diabetes Assessment/Plan: -continue metformin -diabetic diet -monitor glucose on bmp Code(s): E11.9 - TYPE 2 DIABETES MELLITUS WITHOUT COMPLICATIONS (6) Anemia Assessment/Plan: -CHARLIE -agree with checking B12 -s/p IV iron -patient to undergo EGD and colonoscopy when heart rate controlled Code(s): D64.9 - ANEMIA, UNSPECIFIED (7) Lupus Assessment/Plan: -dormant per patient Code(s): M32.9 - SYSTEMIC LUPUS ERYTHEMATOSUS, UNSPECIFIED
[2018-09-05] MEDS: ATORVASTATIN CA 10 MG TABLET (FP) PO SCH (21:26)
[2018-09-05] MEDS: HEPARIN - 25,000 UNIT in SODIUM CHLORIDE 495 ML IV SCH (22:01)
[2018-09-06] MEDS: HEPARIN - 25,000 UNIT in SODIUM CHLORIDE 495 ML IV SCH ×2 (04:49→22:30)
[2018-09-06] MEDS: GLIMEPIRIDE 4 MG TABLET (FP) PO SCH ×2 (06:45→17:58)
[2018-09-06] MEDS: LEVOTHYROXINE NA 112 MCG TABLET (FP) PO SCH (06:45)
[2018-09-06] MEDS: metFORMIN HCL 500 MG TABLET (FP) PO SCH ×2 (06:45→17:58)
[2018-09-06 08:02] LABS: BASO % 0.5 % (0-2.0); EOS % 4.2 % (0-4.5); HEMATOCRIT 24.8 % (32.4-45.2); HEMOGLOBIN 7.9 GM/dL (10.7-15.3); LYMPH % 25.8 % (8-40); MCH 24.6 pg (25.7-33.7); MCHC 31.8 g/dl (32.0-36.0); MEAN CELL VOLUME 77.3 fl (80-96); MEAN PLT VOLUME 10.8 fl (7.5-11.1); NEUT % 61.5 % (42.8-82.8); PLATELET COUNT 203 K/MM3 (134-434); RDW 18.3 % (11.6-15.6); WHITE BLOOD COUNT 5.2 K/mm3 (4.0-10.0)
[2018-09-06 08:59] LABS: ANION GAP 6 MMOL/L (8-16); BLOOD UREA NITROGEN 15 mg/dL (7-18); CALCIUM 8.2 mg/dL (8.5-10.1); CHLORIDE 105 mmol/L (98-107); CO2 29 mmol/L (21-32); CREATININE 0.6 mg/dL (0.55-1.3); GLUCOSE,RANDOM 139 mg/dL (74-106); MAGNESIUM 1.6 mg/dL (1.8-2.4); PHOSPHOROUS 4.1 mg/dL (2.5-4.9); POTASSIUM 4.1 mmol/L (3.5-5.1); SODIUM 140 mmol/L (136-145)
[2018-09-06] MEDS ORDERED: PT OWN MED DRAWER 7, Y5N ONE (09:31)
--- NOTE | 2018-09-06 10:58 | PN ---
Progress Note (short form) - Note Progress Note: Chief Complaint: sob, palpit History of Present Illness: no palps, dyspnea, chest pain. has been walking to bathroom Current Medications Acetaminophen (Tylenol -) 650 mg PO Q4H PRN PRN Reason: FEVER Atorvastatin Calcium (Lipitor -) 10 mg PO HS [facility] Last Admin: 09/05/18 21:26 Dose: 10 mg Diltiazem HCl (Cardizem Cd -) 300 mg PO DAILY [facility] Last Admin: 09/05/18 15:30 Dose: 300 mg Glimepiride (Amaryl -) 4 mg PO BIDAC [facility] Last Admin: 09/06/18 06:45 Dose: 4 mg Heparin Sodium (Porcine) (Heparin -) 1,000 unit IVPUSH PRN PRN PRN Reason: Heparin Last Admin: 09/06/18 04:50 Dose: 1,000 unit Heparin Sodium (Porcine) (Heparin -) 5,000 unit IVPUSH PRN PRN PRN Reason: Heparin Heparin Sodium (Porcine) 25, (000 unit/ Sodium Chloride) 500 mls @ 20 mls/hr IV TITR [facility]; Protocol Last Admin: 09/06/18 04:49 Dose: 1,100 unit/hr, 22 mls/hr Levothyroxine Sodium (Synthroid -) 112 mcg PO DAILY@0700 [facility] Last Admin: 09/06/18 06:45 Dose: 112 mcg Metformin HCl (Glucophage -) 1,000 mg PO BIDAC [facility] Last Admin: 09/06/18 06:45 Dose: 1,000 mg Metoprolol Tartrate (Lopressor Injection -) 5 mg IVPUSH Q4H PRN PRN Reason: TACHYCARDIA Last Admin: 09/04/18 17:44 Dose: 5 mg Propranolol HCl (Inderal -) 60 mg PO TID [facility] Last Admin: 09/06/18 06:44 Dose: 60 mg - Objective Vital Signs Period Temp Pulse Resp BP Sys/Crandall Pulse Ox Last 24 Hr 97.9 F-98.3 F 74-158 18-22 107-147/55-83 96-98 Constitutional: Yes: No Distress, Calm Eyes: No: Sclera Icterus HENT: No: Nasal Congestion Cardiovascular: Yes: Pulse Irregular, S1, S2, Other (PMI non diplaced). No: Gallop, Murmur Respiratory: Yes: CTA Bilaterally. No: Accessory Muscle Use, Rales, Wheezes Gastrointestinal: Yes: Normal Bowel Sounds, Soft. No: Tenderness Musculoskeletal: Yes: Other (No kyphosis) Extremities: No: Cold Edema: No Integumentary: No: Jaundice Neurological: Yes: Alert, Oriented (x3) Psychiatric: No: Agitated Assessment/Plan EKG: afib rate 79 bpm, no ischemic changes CXR: no acute process echo 08/2018 mild conc LVH, nl LV function EF 60-65%, nl RV function, LA/RA mod dilated, mod MR, mod TR, PASP at lest 54 mmHg, mild ao sclerosis, mild AR, tele: AF, HRs 80s-low 100s, rate ok 78F h/o anemia, hypothyroidism, DM, HLD, HTN p/w weakness, palps, dyspnea afib - rapid HR treated with diltiazem 60 mg PO Q6H, metoprolol succinate 50 mg BID ( increased dose on 09/04). - HR trend improved overall, though remains suboptimal and expect will be uncontrolled once out of hospital and active. diltiazem increased to 300 mg daily on 09/05, metoprolol changed to propranolol 60 mg TID with rate improved - continue propranolol, diltiazem, rate controlled - [id number] 5 - holding eliquis 5 mg BID, anemia w/u pending--mointor counts daily, on heparin gtt elevated trop - EKG no ischemic changes, trop indeterminate range with flat trend - not c/w ACS - echo nl LV function Shortness of breath, right arm pain, elevated BNP - BNP slightly elevated 1900 (no priors). CXR clear - euvolemic on exam--deferring lasix - echo nl LV function - sx's likely were due to afib--now resolved with rate controlled anemia - H/H 8.7/27.5->7.7/24.2 day after admission - has not been worked up in the past - cont eliquis, discussed with Dr. Haley - IV iron infusion, considering GI workup patient has refused in the past, d/w patient importance of anemia workup given indication for AC - counts stable - d/w'd pt her estimated risk of CVA, and risk of bleeding if has underlying GI tract source. explained that her chronic anemia for many yrs (? B12 injections in past) has apparently worsened, which is why dr stephens referred her for GI scopes. she states she refused procedure b/c was to be done in office setting, and more comfortable having it done in hospital. - agrees to GI w/u here - rate now controlled, no cardiac contraindication to GI workup HTN - stopped home quinapril, monitoring on propranolol and diltiazem - bp controlled - same plan HLD - cont statin DM: -per hospitalist
[2018-09-06] MEDS ORDERED: MAGNESIUM OXIDE 400 MG TABLET (FP) PO ONE (16:30)
--- NOTE | 2018-09-06 16:30 | PN ---
Progress Note, Physician Chief Complaint: Ms Garcia says she is feeling good today. Denies cp, palpitations, sob, n/v, or weakness. - Current Medication List Current Medications: Active Medications Acetaminophen (Tylenol -) 650 mg PO Q4H PRN PRN Reason: FEVER Atorvastatin Calcium (Lipitor -) 10 mg PO HS [facility] Last Admin: 09/05/18 21:26 Dose: 10 mg Diltiazem HCl (Cardizem Cd -) 300 mg PO DAILY [facility] Last Admin: 09/06/18 10:58 Dose: 300 mg Glimepiride (Amaryl -) 4 mg PO BIDAC [facility] Last Admin: 09/06/18 06:45 Dose: 4 mg Heparin Sodium (Porcine) (Heparin -) 1,000 unit IVPUSH PRN PRN PRN Reason: Heparin Last Admin: 09/06/18 04:50 Dose: 1,000 unit Heparin Sodium (Porcine) (Heparin -) 5,000 unit IVPUSH PRN PRN PRN Reason: Heparin Heparin Sodium (Porcine) 25, (000 unit/ Sodium Chloride) 500 mls @ 20 mls/hr IV TITR [facility]; Protocol Last Titration: 09/06/18 11:00 Dose: 1,200 unit/hr, 24 mls/hr Levothyroxine Sodium (Synthroid -) 112 mcg PO DAILY@0700 [facility] Last Admin: 09/06/18 06:45 Dose: 112 mcg Magnesium Oxide (Mag-Ox -) 800 mg PO ONCE ONE Stop: 09/06/18 16:27 Metformin HCl (Glucophage -) 1,000 mg PO BIDAC [facility] Last Admin: 09/06/18 06:45 Dose: 1,000 mg Metoprolol Tartrate (Lopressor Injection -) 5 mg IVPUSH Q4H PRN PRN Reason: TACHYCARDIA Last Admin: 09/04/18 17:44 Dose: 5 mg Propranolol HCl (Inderal -) 60 mg PO TID [facility] Last Admin: 09/06/18 14:27 Dose: 60 mg - Objective Vital Signs: Vital Signs Temperature 36.8 C 09/06/18 13:45 Pulse Rate 84 09/06/18 13:45 Respiratory Rate 18 09/06/18 13:45 Blood Pressure 121/68 09/06/18 13:45 O2 Sat by Pulse Oximetry (%) 98 09/06/18 10:00 Constitutional: Yes: Well Nourished, No Distress, Calm Cardiovascular: Yes: Pulse Irregular. No: Tachycardia, Gallop, Murmur, Rub Respiratory: Yes: Regular, CTA Bilaterally. No: Rales, Rhonchi, Wheezes Gastrointestinal: Yes: Normal Bowel Sounds, Soft. No: Distention, Tenderness Extremities: Yes: WNL Edema: No Labs: CBC, BMP 09/06/18 06:20 09/06/18 06:20 INR, PTT INR 1.16 (0.83-1.09) H 09/02/18 12:53 Problem List - Problems (1) Atrial fibrillation Code(s): I48.91 - UNSPECIFIED ATRIAL FIBRILLATION Qualifiers: Atrial fibrillation type: unspecified Qualified Code(s): I48.91 - Unspecified atrial fibrillation (2) HTN (hypertension) Code(s): I10 - ESSENTIAL (PRIMARY) HYPERTENSION (3) HLD (hyperlipidemia) Code(s): E78.5 - HYPERLIPIDEMIA, UNSPECIFIED (4) Hypothyroid Code(s): E03.9 - HYPOTHYROIDISM, UNSPECIFIED (5) Diabetes Code(s): E11.9 - TYPE 2 DIABETES MELLITUS WITHOUT COMPLICATIONS (6) Anemia Code(s): D64.9 - ANEMIA, UNSPECIFIED (7) Lupus Code(s): M32.9 - SYSTEMIC LUPUS ERYTHEMATOSUS, UNSPECIFIED Assessment/Plan (1) Atrial fibrillation Assessment/Plan: -case d/w Dr Mckenzie -toprol xl changed to inderal 60mg tid -diltiazem changed to 300mg daily -rate controlled -continue heparin gtt for anticoagulation Code(s): I48.91 - UNSPECIFIED ATRIAL FIBRILLATION Qualifiers: Atrial fibrillation type: unspecified Qualified Code(s): I48.91 - Unspecified atrial fibrillation (2) HTN (hypertension) Assessment/Plan: -quinapril stopped this admission -now on diltiazem and inderal as above -controlled Code(s): I10 - ESSENTIAL (PRIMARY) HYPERTENSION (3) HLD (hyperlipidemia) Assessment/Plan: -continue lipitor Code(s): E78.5 - HYPERLIPIDEMIA, UNSPECIFIED (4) Hypothyroid Assessment/Plan: -continue levothyroxine Code(s): E03.9 - HYPOTHYROIDISM, UNSPECIFIED (5) Diabetes Assessment/Plan: -continue metformin -diabetic diet -monitor glucose on bmp Code(s): E11.9 - TYPE 2 DIABETES MELLITUS WITHOUT COMPLICATIONS (6) Anemia Assessment/Plan: -s/p IV iron -planning for scopes on -case d/w Dr Roy Code(s): D64.9 - ANEMIA, UNSPECIFIED (7) Lupus Assessment/Plan: -dormant per patient Code(s): M32.9 - SYSTEMIC LUPUS ERYTHEMATOSUS, UNSPECIFIED
--- NOTE | 2018-09-06 16:37 | PN.GI ---
GI Progress Note Subjective: No acute events Meds being adjusted for heart rate control Iron saturation 5 % - Objective Vital Signs: Vital Signs Temperature 98.3 F 09/06/18 13:45 Pulse Rate 84 09/06/18 13:45 Respiratory Rate 18 09/06/18 13:45 Blood Pressure 121/68 09/06/18 13:45 O2 Sat by Pulse Oximetry (%) 98 09/06/18 10:00 Constitutional: Calm Eyes: No: Sclera Icterus Cardiovascular: Yes: Pulse Irregular Respiratory: Yes: CTA Bilaterally Gastrointestinal Inspection: No: Distention ...Auscultate: Yes: Normoactive Bowel Sounds ...Palpate: No: Hepatomegaly, Splenomegaly, Tenderness ...Percussion: No: Tympanitic Edema: Yes Edema: LLE: Trace, RLE: Trace Neurological: Yes: Alert, Oriented Labs: CBC, BMP 09/06/18 06:20 09/06/18 06:20 INR, PTT INR 1.16 (0.83-1.09) H 09/02/18 12:53 Hepatic Panel Total Bilirubin 0.4 mg/dL (0.2-1) 09/04/18 06:00 Direct Bilirubin 0.2 mg/dL (0.0-0.2) 09/04/18 06:00 AST 14 U/L (15-37) L 09/04/18 06:00 ALT 30 U/L (13-61) 09/04/18 06:00 Alkaline Phosphatase 89 U/L (45-117) 09/04/18 06:00 Albumin 3.2 g/dl (3.4-5.0) L 09/04/18 06:00 Problem List - Problems (1) Anemia Assessment/Plan: Plan for EGD/Colonoscopy if medically optimized. Placed on clears for tomorrow. Heparin will need to be held 4 hours prior to procedure ( scheduled for 9am ) Monitor H/H and for active bleeding Discussed case with Dr. Putnam and Ms. Garcia Code(s): D64.9 - ANEMIA, UNSPECIFIED Qualifiers: Anemia type: iron deficiency
[2018-09-06] MEDS: ATORVASTATIN CA 10 MG TABLET (FP) PO SCH (21:19)
[2018-09-07] MEDS: metFORMIN HCL 500 MG TABLET (FP) PO SCH (06:30)
[2018-09-07] MEDS: GLIMEPIRIDE 4 MG TABLET (FP) PO SCH (06:30)
[2018-09-07] MEDS: LEVOTHYROXINE NA 112 MCG TABLET (FP) PO SCH (06:30)
[2018-09-07 06:55] LABS: BASO % 0.3 % (0-2.0); EOS % 3.9 % (0-4.5); HEMATOCRIT 24.8 % (32.4-45.2); HEMOGLOBIN 7.9 GM/dL (10.7-15.3); LYMPH % 20.6 % (8-40); MCH 24.8 pg (25.7-33.7); MCHC 31.7 g/dl (32.0-36.0); MEAN CELL VOLUME 78.3 fl (80-96); MEAN PLT VOLUME 10.8 fl (7.5-11.1); MONO % 8.1 % (3.8-10.2); NEUT % 67.1 % (42.8-82.8); PLATELET COUNT 192 K/MM3 (134-434); RBC 3.16 M/mm3 (3.60-5.2); RDW 18.5 % (11.6-15.6); WHITE BLOOD COUNT 5.6 K/mm3 (4.0-10.0)
[2018-09-07 07:15] LABS: ANION GAP 7 MMOL/L (8-16); BLOOD UREA NITROGEN 12 mg/dL (7-18); CALCIUM 7.8 mg/dL (8.5-10.1); CHLORIDE 106 mmol/L (98-107); CO2 28 mmol/L (21-32); CREATININE 0.7 mg/dL (0.55-1.3); GLUCOSE,RANDOM 158 mg/dL (74-106); MAGNESIUM 1.6 mg/dL (1.8-2.4); PHOSPHOROUS 3.8 mg/dL (2.5-4.9); POTASSIUM 4.1 mmol/L (3.5-5.1); SODIUM 141 mmol/L (136-145)
[2018-09-07] MEDS ORDERED: MAGNESIUM SULF 50% (8.12 MEQ/2 ML-1 GM VIAL) IVPB ONE (07:59)
[2018-09-07] MEDS ORDERED: INSULIN (NOVOLOG) ASPART 100 UNITS/ML 10ML VIAL ONE (08:09)
[2018-09-07] MEDS ORDERED: PT OWN MED DRAWER 7, Y5N ONE ×3 (08:10→20:27)
--- NOTE | 2018-09-07 09:56 | PN ---
Progress Note (short form) - Note Progress Note: Chief Complaint: sob, palpit History of Present Illness: no palps, dyspnea, chest pain, edema. Current Medications Acetaminophen (Tylenol -) 650 mg PO Q4H PRN PRN Reason: FEVER Atorvastatin Calcium (Lipitor -) 10 mg PO HS [facility] Last Admin: 09/06/18 21:19 Dose: 10 mg Diltiazem HCl (Cardizem Cd -) 300 mg PO DAILY [facility] Last Admin: 09/07/18 09:41 Dose: 300 mg Glimepiride (Amaryl -) 4 mg PO BIDAC [facility] Last Admin: 09/07/18 06:30 Dose: 4 mg Heparin Sodium (Porcine) (Heparin -) 1,000 unit IVPUSH PRN PRN PRN Reason: Heparin Last Admin: 09/06/18 04:50 Dose: 1,000 unit Heparin Sodium (Porcine) (Heparin -) 5,000 unit IVPUSH PRN PRN PRN Reason: Heparin Last Admin: 09/07/18 08:19 Dose: 5,000 unit Heparin Sodium (Porcine) 25, (000 unit/ Sodium Chloride) 500 mls @ 20 mls/hr IV TITR [facility]; Protocol Last Titration: 09/07/18 08:19 Dose: 1,350 unit/hr, 27 mls/hr Levothyroxine Sodium (Synthroid -) 112 mcg PO DAILY@0700 [facility] Last Admin: 09/07/18 06:30 Dose: 112 mcg Metformin HCl (Glucophage -) 1,000 mg PO BIDAC [facility] Last Admin: 09/07/18 06:30 Dose: 1,000 mg Metoprolol Tartrate (Lopressor Injection -) 5 mg IVPUSH Q4H PRN PRN Reason: TACHYCARDIA Last Admin: 09/04/18 17:44 Dose: 5 mg Propranolol HCl (Inderal -) 60 mg PO TID [facility] Last Admin: 09/07/18 06:28 Dose: 60 mg - Objective Vital Signs Period Temp Pulse Resp BP Sys/Crandall Pulse Ox Last 24 Hr 98.0 F-98.7 F 67-84 18-20 102-135/48-70 96-98 Constitutional: Yes: No Distress, Calm Eyes: No: Sclera Icterus HENT: No: Nasal Congestion Cardiovascular: Yes: Pulse Irregular, S1, S2, Other (PMI non diplaced). No: Gallop, Murmur Respiratory: Yes: CTA Bilaterally. No: Accessory Muscle Use, Rales, Wheezes Gastrointestinal: Yes: Normal Bowel Sounds, Soft. No: Tenderness Musculoskeletal: Yes: Other (No kyphosis) Extremities: No: Cold Edema: No Integumentary: No: Jaundice Neurological: Yes: Alert, Oriented (x3) Psychiatric: No: Agitated Assessment/Plan EKG: afib rate 79 bpm, no ischemic changes CXR: no acute process echo 08/2018 mild conc LVH, nl LV function EF 60-65%, nl RV function, LA/RA mod dilated, mod MR, mod TR, PASP at lest 54 mmHg, mild ao sclerosis, mild AR, tele: AF, HRs 80s-low 100s, rate ok 78F h/o anemia, hypothyroidism, DM, HLD, HTN p/w weakness, palps, dyspnea afib - rapid HR treated with diltiazem 60 mg PO Q6H, metoprolol succinate 50 mg BID ( increased dose on 09/04). - HR trend improved overall, though remains suboptimal and expect will be uncontrolled once out of hospital and active. diltiazem increased to 300 mg daily on 09/05, metoprolol changed to propranolol 60 mg TID with rate improved - continue propranolol, diltiazem, rate controlled - [id number] - holding eliquis 5 mg BID, anemia w/u pending--mointor counts daily, on heparin gtt elevated trop - EKG no ischemic changes, trop indeterminate range with flat trend - not c/w ACS - echo nl LV function Shortness of breath, right arm pain, elevated BNP - BNP slightly elevated 1900 (no priors). CXR clear - euvolemic on exam--deferring lasix - echo nl LV function - sx's likely were due to afib--now resolved with rate controlled anemia - H/H 8.7/27.5->7.7/24.2 day after admission - has not been worked up in the past - cont eliquis, discussed with Dr. Haley - IV iron infusion, considering GI workup patient has refused in the past, d/w patient importance of anemia workup given indication for AC - counts stable - d/w'd pt her estimated risk of CVA, and risk of bleeding if has underlying GI tract source. explained that her chronic anemia for many yrs (? B12 injections in past) has apparently worsened, which is why dr stephens referred her for GI scopes. she states she refused procedure b/c was to be done in office setting, and more comfortable having it done in hospital. - agrees to GI w/u here - rate now controlled, no cardiac contraindication to EGD/colonoscopy HTN - stopped home quinapril, monitoring on propranolol and diltiazem - bp controlled - same plan HLD - cont statin DM: -per hospitalist
--- NOTE | 2018-09-07 12:38 | PN.GI ---
GI Progress Note Subjective: Pt seen/examined at bedside, feeling better, no complaints, denies chest pain, sob or palpitations. No blood in stools. Started on clear liquid diet today in preparation for endoscopic procedures. HR 70-90s on monitor. - Objective Vital Signs: Vital Signs Temperature 98.2 F 09/07/18 09:34 Pulse Rate 67 09/07/18 09:40 Respiratory Rate 18 09/07/18 09:34 Blood Pressure 132/63 09/07/18 09:34 O2 Sat by Pulse Oximetry (%) 98 09/07/18 09:40 Constitutional: Well Nourished, No Distress Cardiovascular: Yes: WNL, Regular Rate and Rhythm Respiratory: Yes: WNL, Regular, CTA Bilaterally Gastrointestinal Inspection: Yes: WNL ...Auscultate: Yes: Normoactive Bowel Sounds ...Palpate: Yes: Other (Abd soft, nt, nd) Labs: CBC, BMP 09/07/18 05:30 09/07/18 05:30 INR, PTT INR 1.16 (0.83-1.09) H 09/02/18 12:53 Problem List - Problems (1) Microcytic anemia Assessment/Plan: 78yo female presenting with sob and palpitations found to have A fib with RVR on heparin gtt now rate controlled with evidence of iron deficiency anemia ( ferritin 7). Hb stable with no overt GI bleeding. History of B12 deficiency also noted. Seen by cardiology with no C/I to endoscopy. No prior colonoscopy. -Plan for EGD/colonoscopy tomorrow (09/08/18) for further evaluation. Risk/ benefits were discussed and pt wants to proceed. -Check cbc, bmp in am -Clear liquid diet today -Start 4L golytely and 20mg PO dulcolax at 5pm -Keep NPOpMN -Hold heparin 6 hours prior to EGD/colon (~3am) Discussed with medicine attending and nursing staff Code(s): D50.9 - IRON DEFICIENCY ANEMIA, UNSPECIFIED
--- NOTE | 2018-09-07 14:55 | PN ---
Physical Exam: SUBJECTIVE: Patient seen and examined, no chest pain, dyspnea, dizziness or palpitations. No dark or bloody stools. OBJECTIVE: Vital Signs Period Temp Pulse Resp BP Sys/Crandall Pulse Ox Last 24 Hr 97.9 F-98.7 F 67-84 18-20 102-135/48-64 96-98 Intake & Output 09/04/18 09/05/18 09/06/18 09/07/18 23:59 23:59 23:59 23:59 Intake Total 434 49 5124 788 Balance 719 05 6228 788 GENERAL: The patient is awake, alert, and fully oriented, in no acute distress. HEAD: Normal with no signs of trauma. EYES: PERRL, extraocular movements intact, sclera anicteric, conjunctiva clear. No ptosis. Pos Pallor ENT: Ears normal, nares patent, oropharynx clear without exudates, moist mucous membranes. NECK: Trachea midline, full range of motion, supple. LUNGS: Breath sounds equal, clear to auscultation bilaterally, no wheezes, no crackles, no accessory muscle use. HEART: S1S2 irregularly irregular ABDOMEN: Soft, nontender, nondistended, normoactive bowel sounds, no guarding, no rebound EXTREMITIES: trace pedal edema PSYCH: Normal mood, normal affect. SKIN: Warm, dry, normal turgor, no rashes or lesions noted Laboratory Results - last 24 hr 09/06/18 09/06/18 09/06/18 06:20 17:39 18:00 WBC RBC Hgb Hct MCV MCH MCHC RDW Plt Count MPV Absolute Neuts (auto) Neutrophils % Lymphocytes % Monocytes % Eosinophils % Basophils % Nucleated RBC % PTT (Actin FS) 59.6 H Sodium Potassium Chloride Carbon Dioxide Anion Gap BUN Creatinine Creat Clearance w eGFR POC Glucometer 196 Random Glucose Calcium Phosphorus Magnesium Iron 23 L 09/07/18 09/07/18 09/07/18 05:30 05:30 05:30 WBC 5.6 RBC 3.16 L Hgb 7.9 L Hct 24.8 L MCV 78.3 L MCH 24.8 L MCHC 31.7 L RDW 18.5 H Plt Count 192 MPV 10.8 Absolute Neuts (auto) 3.7 Neutrophils % 67.1 Lymphocytes % 20.6 D Monocytes % 8.1 Eosinophils % 3.9 Basophils % 0.3 Nucleated RBC % 0 PTT (Actin FS) 31.5 Sodium 141 Potassium 4.1 Chloride 106 Carbon Dioxide 28 Anion Gap 7 L BUN 12 Creatinine 0.7 Creat Clearance w eGFR 81.36 POC Glucometer Random Glucose 158 H Calcium 7.8 L Phosphorus 3.8 Magnesium 1.6 L Iron 09/07/18 09/07/18 05:39 11:19 WBC RBC Hgb Hct MCV MCH MCHC RDW Plt Count MPV Absolute Neuts (auto) Neutrophils % Lymphocytes % Monocytes % Eosinophils % Basophils % Nucleated RBC % PTT (Actin FS) Sodium Potassium Chloride Carbon Dioxide Anion Gap BUN Creatinine Creat Clearance w eGFR POC Glucometer 160 151 Random Glucose Calcium Phosphorus Magnesium Iron Active Medications Home Medications Medication Instructions Recorded Atenolol [Tenormin -] 50 mg PO DAILY 10/12/14 Cyclobenzaprine HCl [Flexeril -] 10 mg PO TID PRN #21 tablet 10/12/14 Glimepiride 4 mg PO ASDIR 10/12/14 Levothyroxine [Synthroid -] 112 mcg PO DAILY 10/12/14 Naproxen [Naprosyn -] 500 mg PO BID PRN #14 tablet 10/12/14 Quinapril HCl [Accupril -] 10 mg PO DAILY 10/12/14 Simvastatin [Zocor -] 20 mg PO HS 10/12/14 metFORMIN HCL [Glucophage] 1,000 mg PO BID 10/12/14 Oxycodone HCl/Acetaminophen 1 combo PO Q6H PRN #14 tablet 10/19/14 [Percocet 5-325 mg Tablet -] Aspirin Coated [Ecotrin -] 81 mg PO DAILY 10/25/14 Active Medications Acetaminophen (Tylenol -) 650 mg PO Q4H PRN PRN Reason: FEVER Atorvastatin Calcium (Lipitor -) 10 mg PO [facility] Last Admin: 09/06/18 21:19 Dose: 10 mg Bisacodyl (Dulcolax -) 20 mg PO ONCE ONE Stop: 09/07/18 17:01 Diltiazem HCl (Cardizem Cd -) 300 mg PO DAILY [facility] Last Admin: 09/07/18 09:41 Dose: 300 mg Glimepiride (Amaryl -) 4 mg PO BIDAC [facility] Last Admin: 09/07/18 06:30 Dose: 4 mg Heparin Sodium (Porcine) (Heparin -) 1,000 unit IVPUSH PRN PRN PRN Reason: Heparin Last Admin: 09/06/18 04:50 Dose: 1,000 unit Heparin Sodium (Porcine) (Heparin -) 5,000 unit IVPUSH PRN PRN PRN Reason: Heparin Last Admin: 09/07/18 08:19 Dose: 5,000 unit Heparin Sodium (Porcine) 25, (000 unit/ Sodium Chloride) 500 mls @ 20 mls/hr IV TITR [facility]N; Protocol Stop: 09/08/18 03:00 Last Titration: 09/07/18 08:19 Dose: 1,350 unit/hr, 27 mls/hr Levothyroxine Sodium (Synthroid -) 112 mcg PO DAILY@0700 [facility] Last Admin: 09/07/18 06:30 Dose: 112 mcg Metformin HCl (Glucophage -) 1,000 mg PO BIDAC [facility] Last Admin: 09/07/18 06:30 Dose: 1,000 mg Metoprolol Tartrate (Lopressor Injection -) 5 mg IVPUSH Q4H PRN PRN Reason: TACHYCARDIA Last Admin: 09/04/18 17:44 Dose: 5 mg Polyethylene Glycol/Electrolytes (Golytely Solution -) 4,000 ml PO ONCE ONE Stop: 09/07/18 17:01 Propranolol HCl (Inderal -) 60 mg PO TID [facility] Last Admin: 09/07/18 14:29 Dose: 60 mg Laboratory Results - last 24 hr 09/06/18 09/06/18 09/06/18 06:20 17:39 18:00 WBC RBC Hgb Hct MCV MCH MCHC RDW Plt Count MPV Absolute Neuts (auto) Neutrophils % Lymphocytes % Monocytes % Eosinophils % Basophils % Nucleated RBC % PTT (Actin FS) 59.6 H Sodium Potassium Chloride Carbon Dioxide Anion Gap BUN Creatinine Creat Clearance w eGFR POC Glucometer 196 Random Glucose Calcium Phosphorus Magnesium Iron 23 L 09/07/18 09/07/18 09/07/18 05:30 05:30 05:30 WBC 5.6 RBC 3.16 L Hgb 7.9 L Hct 24.8 L MCV 78.3 L MCH 24.8 L MCHC 31.7 L RDW 18.5 H Plt Count 192 MPV 10.8 Absolute Neuts (auto) 3.7 Neutrophils % 67.1 Lymphocytes % 20.6 D Monocytes % 8.1 Eosinophils % 3.9 Basophils % 0.3 Nucleated RBC % 0 PTT (Actin FS) 31.5 Sodium 141 Potassium 4.1 Chloride 106 Carbon Dioxide 28 Anion Gap 7 L BUN 12 Creatinine 0.7 Creat Clearance w eGFR 81.36 POC Glucometer Random Glucose 158 H Calcium 7.8 L Phosphorus 3.8 Magnesium 1.6 L Iron 09/07/18 09/07/18 05:39 11:19 WBC RBC Hgb Hct MCV MCH MCHC RDW Plt Count MPV Absolute Neuts (auto) Neutrophils % Lymphocytes % Monocytes % Eosinophils % Basophils % Nucleated RBC % PTT (Actin FS) Sodium Potassium Chloride Carbon Dioxide Anion Gap BUN Creatinine Creat Clearance w eGFR POC Glucometer 160 151 Random Glucose Calcium Phosphorus Magnesium Iron 2D echo results reviewed Telemetry: Afib 80s-90s ASSESSMENT/PLAN: 78 yof with PMHxof HTN, HLD, NIDDM, hypothyroidism, lupus (dormant), admitted with afib with RVR and acute on chronic anemia -New onset Atrial fibrillation with RVR -Acute on chronic iron deficiency anemia, r/o occult gastrointestinal blood loss in the setting of need for full dose AC -Hypomagnesemia -HTN -HLD -NIDDM -Hypothyroidism -Lupus (Dormant) Plan: Rate controlled. Cardiology input noted, 2D echo noted. Continue cardizem/ inderal. Eliquis on hold pending GI w/u. GI input noted. For EGD/colonoscopy in AM. Hold heparin drip at 3 Am (Discussed with nursing). Resume Eliquis pending GI work up. Hold glimepiride/Metformin. Start ISS/diabetic diet. Replete Mg. DVTPPX heparin drip as above Dispo planning, d/c in 24 hours if GI w/u non concerning and no new events. Plan discussed with patient and nursing in detail, all questions answered. Visit type - Emergency Visit Emergency Visit: Yes ED Registration Date: 09/02/18 Care time: The patient presented to the Emergency Department on the above date and was hospitalized for further evaluation of their emergent condition. - New Patient This patient is new to me today: Yes Date on this admission: 09/07/18 - Critical Care Critical Care patient: No - Discharge Referral Referred to [facility] Med P.C.: No
[2018-09-07] MEDS ORDERED: BISACODYL 5 MG TABLET.DR (FP) PO ONE (17:00)
[2018-09-07] MEDS ORDERED: PEG 3350/NA SULF BICARB CL/KCL 4000 ML SOLN.RECON PO ONE (17:00)
[2018-09-07] MEDS: INSULIN SLIDING SCALE (NOVOLOG) 1 VIAL SQ SCH ×2 (17:14→21:06)
[2018-09-07] MEDS: HEPARIN - 25,000 UNIT in SODIUM CHLORIDE 495 ML IV SCH (21:02)
[2018-09-07] MEDS: ATORVASTATIN CA 10 MG TABLET (FP) PO SCH (21:06)
[2018-09-08] MEDS: INSULIN SLIDING SCALE (NOVOLOG) 1 VIAL SQ SCH ×4 (06:32→22:46)
[2018-09-08] MEDS: LEVOTHYROXINE NA 112 MCG TABLET (FP) PO SCH (06:32)
[2018-09-08 06:44] LABS: HEMATOCRIT 26.1 % (32.4-45.2); HEMOGLOBIN 7.8 GM/dL (10.7-15.3); MCH 23.1 pg (25.7-33.7); MEAN PLT VOLUME 10.4 fl (7.5-11.1); PLATELET COUNT 190 K/MM3 (134-434); RBC 3.39 M/mm3 (3.60-5.2); RDW 18.1 % (11.6-15.6); WHITE BLOOD COUNT 4.1 K/mm3 (4.0-10.0)
[2018-09-08 07:07] LABS: ANION GAP 7 MMOL/L (8-16); BLOOD UREA NITROGEN 9 mg/dL (7-18); CALCIUM 7.8 mg/dL (8.5-10.1); CHLORIDE 106 mmol/L (98-107); CO2 28 mmol/L (21-32); CREATININE 0.6 mg/dL (0.55-1.3); GLUCOSE,RANDOM 144 mg/dL (74-106); MAGNESIUM 1.9 mg/dL (1.8-2.4); POTASSIUM 3.8 mmol/L (3.5-5.1); SODIUM 141 mmol/L (136-145)
--- NOTE | 2018-09-08 09:09 | PN ---
Progress Note (short form) - Note Progress Note: procedure cancelled by anesthesia this AM due to heart rate. Noted RVR 110-140's spoke to patient's nurse If HR controlled, plan for later today Keep NPO for now except meds Hold heparin drip for now Problem List - Problems (1) Anemia Code(s): D64.9 - ANEMIA, UNSPECIFIED Qualifiers: Anemia type: iron deficiency
[2018-09-08] MEDS ORDERED: SODIUM CHLORIDE 250 ML IV STA (09:32)
[2018-09-08] MEDS: METOPROLOL TARTRATE 5 MG/5 ML VIAL IVPUSH PRN (10:18)
[2018-09-08] MEDS ORDERED: SODIUM CHLORIDE 1,000 ML IV SCH (10:32)
--- NOTE | 2018-09-08 11:37 | PN ---
Progress Note (short form) - Note Progress Note: Chief Complaint: sob, palpit History of Present Illness: no palps, dyspnea, chest pain, edema. Current Medications Generic Name Dose Route Start Last Admin Trade Name Freq PRN Reason Stop Dose Admin Acetaminophen 650 mg 09/02/18 15:39 Tylenol - PO Q4H PRN FEVER Atorvastatin Calcium 10 mg 09/02/18 22:00 09/07/18 21:06 Lipitor - PO 10 mg HS [facility] Administration Diltiazem HCl 360 mg 09/09/18 10:00 Cardizem Cd - PO DAILY [facility] Diltiazem HCl 60 mg 09/08/18 11:33 Cardizem - PO 09/08/18 11:34 ONCE ONE Heparin Sodium (Porcine) 1,000 unit 09/05/18 17:24 09/06/18 04:50 Heparin - IVPUSH 1,000 unit PRN PRN Administration Heparin Heparin Sodium (Porcine) 5,000 unit 09/05/18 17:24 09/07/18 08:19 Heparin - IVPUSH 5,000 unit PRN PRN Administration Heparin Sodium Chloride 1,000 mls @ 83 mls/hr 09/08/18 10:32 Normal Saline - IV ASDIR [facility] Insulin Aspart 1 vial 09/07/18 16:30 09/08/18 06:32 Novolog Vial Sliding Scale - SQ Not Given ACHS [facility] Protocol Levothyroxine Sodium 112 mcg 09/03/18 07:00 09/08/18 06:32 Synthroid - PO 112 mcg DAILY@0700 [facility] Administration Metoprolol Tartrate 5 mg 09/03/18 11:09 09/08/18 10:18 Lopressor Injection - IVPUSH 5 mg Q4H PRN Administration TACHYCARDIA Propranolol HCl 60 mg 09/05/18 18:12 09/08/18 06:32 Inderal - PO 60 mg TID [facility] Administration - Objective Vital Signs Period Temp Pulse Resp BP Sys/Crandall Pulse Ox Last 24 Hr 97.8 F-98.0 F 74-138 16-20 108-141/59-88 98-98 Constitutional: Yes: No Distress, Calm Eyes: No: Sclera Icterus HENT: No: Nasal Congestion Cardiovascular: Yes: Pulse Irregular, S1, S2, Other (PMI non diplaced). No: Gallop, Murmur Respiratory: Yes: CTA Bilaterally. No: Accessory Muscle Use, Rales, Wheezes Gastrointestinal: Yes: Normal Bowel Sounds, Soft. No: Tenderness Musculoskeletal: Yes: Other (No kyphosis) Extremities: No: Cold Edema: No Integumentary: No: Jaundice Neurological: Yes: Alert, Oriented (x3) Psychiatric: No: Agitated EKG: afib rate 79 bpm, no ischemic changes CXR: no acute process echo 08/2018 mild conc LVH, nl LV function EF 60-65%, nl RV function, LA/RA mod dilated, mod MR, mod TR, PASP at lest 54 mmHg, mild ao sclerosis, mild AR, tele: AF, rvr 130s a/p: 78F h/o anemia, hypothyroidism, DM, HLD, HTN p/w weakness, palps, dyspnea. afib - rapid HR treated with diltiazem 60 mg PO Q6H, metoprolol succinate 50 mg BID ( increased dose on 09/04). - HR trend improved overall, though remains suboptimal and expect will be uncontrolled once out of hospital and active. diltiazem increased to 300 mg daily on 09/05, metoprolol changed to propranolol 60 mg TID with rate improved -09/08: colonoscopy postponed this AM due to rvr. Will increase po dilt to 360 and give iv lopressor push as well. - [id number] 5 - holding eliquis 5 mg BID, anemia w/u pending--mointor counts daily, on heparin gtt elevated trop - EKG no ischemic changes, trop indeterminate range with flat trend - not c/w ACS - echo nl LV function Shortness of breath, right arm pain, elevated BNP - BNP slightly elevated 1900 (no priors). CXR clear - euvolemic on exam--deferring lasix - echo nl LV function - sx's likely were due to afib--now resolved with rate controlled anemia - H/H 8.7/27.5->7.7/24.2 day after admission - has not been worked up in the past - cont eliquis, discussed with Dr. Haley - IV iron infusion, considering GI workup patient has refused in the past, d/w patient importance of anemia workup given indication for AC - counts stable - d/w'd pt her estimated risk of CVA, and risk of bleeding if has underlying GI tract source. explained that her chronic anemia for many yrs (? B12 injections in past) has apparently worsened, which is why dr stephens referred her for GI scopes. she states she refused procedure b/c was to be done in office setting, and more comfortable having it done in hospital. - agrees to GI w/u here - procedures postponed this AM due to rvr. Made changes to rate meds as above. If hr improved later then no cardiac contraindication to EGD/colonoscopy today. HTN - stopped home quinapril, monitoring on propranolol and diltiazem - bp controlled - same plan HLD - cont statin DM: -per hospitalist
--- NOTE | 2018-09-08 13:12 | PN ---
Physical Exam: SUBJECTIVE: Patient seen and examined, got back from endoscopy. reports palpitations. No abdominal pain, diarrhea or concerns. OBJECTIVE: Vital Signs Period Temp Pulse Resp BP Sys/Crandall Pulse Ox Last 24 Hr 97.8 F-98.0 F 74-138 16-20 108-141/59-88 98-98 GENERAL: The patient is awake, alert, and fully oriented, in no acute distress. HEAD: Normal with no signs of trauma. EYES: PERRL, extraocular movements intact, sclera anicteric, conjunctiva clear. No ptosis. Pos Pallor ENT: Ears normal, nares patent, oropharynx clear without exudates, moist mucous membranes. NECK: Trachea midline, full range of motion, supple. LUNGS: Breath sounds equal, clear to auscultation bilaterally, no wheezes, no crackles, no accessory muscle use. HEART: S1S2 irregularly irregular, tachycardic ABDOMEN: Soft, nontender, nondistended, normoactive bowel sounds, no guarding, no rebound EXTREMITIES: trace pedal edema PSYCH: Normal mood, normal affect. SKIN: Warm, dry, normal turgor, no rashes or lesions noted Laboratory Results - last 24 hr 09/07/18 09/07/18 09/07/18 15:00 17:07 20:44 WBC RBC Hgb Hct MCV MCH MCHC RDW Plt Count MPV PTT (Actin FS) 110.2 H Sodium Potassium Chloride Carbon Dioxide Anion Gap BUN Creatinine Creat Clearance w eGFR POC Glucometer 123 141 Random Glucose Calcium Magnesium 09/08/18 09/08/18 09/08/18 03:45 05:19 05:30 WBC RBC Hgb Hct MCV MCH MCHC RDW Plt Count MPV PTT (Actin FS) 32.0 32.0 Sodium Potassium Chloride Carbon Dioxide Anion Gap BUN Creatinine Creat Clearance w eGFR POC Glucometer 154 Random Glucose Calcium Magnesium 09/08/18 09/08/18 09/08/18 05:30 05:30 11:38 WBC 4.1 RBC 3.39 L Hgb 7.8 L Hct 26.1 L MCV 77.0 L MCH 23.1 L MCHC 30.0 L RDW 18.1 H Plt Count 190 MPV 10.4 PTT (Actin FS) Sodium 141 Potassium 3.8 Chloride 106 Carbon Dioxide 28 Anion Gap 7 L BUN 9 Creatinine 0.6 Creat Clearance w eGFR 97.20 POC Glucometer 147 Random Glucose 144 H Calcium 7.8 L Magnesium 1.9 Active Medications Generic Name Dose Route Start Last Admin Trade Name Freq PRN Reason Stop Dose Admin Acetaminophen 650 mg 09/02/18 15:39 Tylenol - PO Q4H PRN FEVER Atorvastatin Calcium 10 mg 09/02/18 22:00 09/07/18 21:06 Lipitor - PO 10 mg HS [facility]AW[facility] Administration Diltiazem HCl 360 mg 09/09/18 10:00 Cardizem Cd - PO DAILY [facility] Diltiazem HCl 60 mg 09/08/18 13:15 Cardizem - PO 09/08/18 13:16 ONCE ONE Heparin Sodium (Porcine) 1,000 unit 09/05/18 17:24 09/06/18 04:50 Heparin - IVPUSH 1,000 unit PRN PRN Administration Heparin Heparin Sodium (Porcine) 5,000 unit 09/05/18 17:24 09/07/18 08:19 Heparin - IVPUSH 5,000 unit PRN PRN Administration Heparin Sodium Chloride 1,000 mls @ 83 mls/hr 09/08/18 10:32 09/08/18 10:55 Normal Saline - IV 83 mls/hr ASDIR [facility] Administration Insulin Aspart 1 vial 09/07/18 16:30 09/08/18 11:48 Novolog Vial Sliding Scale - SQ Not Given ACHS [facility] Protocol Levothyroxine Sodium 112 mcg 09/03/18 07:00 09/08/18 06:32 Synthroid - PO 112 mcg DAILY@0700 [facility] Administration Metoprolol Tartrate 5 mg 09/03/18 11:09 09/08/18 10:18 Lopressor Injection - IVPUSH 5 mg Q4H PRN Administration TACHYCARDIA Propranolol HCl 60 mg 09/05/18 18:12 09/08/18 06:32 Inderal - PO 60 mg TID [facility] Administration ASSESSMENT/PLAN: 78 yof with PMHxof HTN, HLD, NIDDM, hypothyroidism, lupus (dormant), admitted with afib with RVR and acute on chronic anemia -New onset Atrial fibrillation with RVR -Acute on chronic iron deficiency anemia, r/o occult gastrointestinal blood loss in the setting of need for full dose AC -Hypomagnesemia -HTN -HLD -NIDDM -Hypothyroidism -Lupus (Dormant) Plan: Sent back from endoscopy given Afib with RVR 100-140s. Cardizem increased to 360 mg daily. Lopressor 5 mg IV x 1. Continue propranolol Plan for EGD/colonosocpy later if HR better. gentle hydration while npo with monitoring of volume status. heparin drip on hold, resume per GI. Plan to resume Eliquis if GI w/u non concerning. Cardiology input noted. 2 D echo reviewed. Hold glimepiride/Metformin. ISS/diabetic diet. Replete Mg prn. DVTPPX heparin drip as above Dispo planning, pending improved HR and GI work up. Plan discussed with patient and nursing in detail, all questions answered. Visit type - Emergency Visit Emergency Visit: Yes ED Registration Date: 09/02/18 Care time: The patient presented to the Emergency Department on the above date and was hospitalized for further evaluation of their emergent condition. - New Patient This patient is new to me today: No - Critical Care Critical Care patient: No - Discharge Referral Referred to [facility] Med P.C.: No
[2018-09-08] MEDS ORDERED: MAGNESIUM SULF 50% (8.12 MEQ/2 ML-1 GM VIAL) IVPB ONE (13:13)
[2018-09-08] MEDS ORDERED: dilTIAZem HCL 60 MG TABLET (FP) PO ONE (13:15)
--- NOTE | 2018-09-08 15:21 | PN ---
Progress Note (short form) - Note Progress Note: EGD/Colon complete. Reports left in physical chart and will be scanned into [employer] Problem List - Problems (1) Anemia Code(s): D64.9 - ANEMIA, UNSPECIFIED Qualifiers: Anemia type: iron deficiency
[2018-09-08] MEDS ORDERED: PT OWN MED DRAWER 7, Y5N ONE (22:37)
[2018-09-08] MEDS: ATORVASTATIN CA 10 MG TABLET (FP) PO SCH (22:44)
[2018-09-08] MEDS: PANTOPRAZOLE 20 MG TABLET (FP) PO SCH (22:48)
[2018-09-09] MEDS: INSULIN SLIDING SCALE (NOVOLOG) 1 VIAL SQ SCH (06:13)
[2018-09-09] MEDS: LEVOTHYROXINE NA 112 MCG TABLET (FP) PO SCH (06:13)
[2018-09-09 06:23] LABS: HEMATOCRIT 28.5 % (32.4-45.2); HEMOGLOBIN 8.7 GM/dL (10.7-15.3); MCH 23.8 pg (25.7-33.7); MCHC 30.7 g/dl (32.0-36.0); MEAN CELL VOLUME 77.5 fl (80-96); MEAN PLT VOLUME 10.4 fl (7.5-11.1); PLATELET COUNT 184 K/MM3 (134-434); RBC 3.67 M/mm3 (3.60-5.2); RDW 18.6 % (11.6-15.6); WHITE BLOOD COUNT 4.8 K/mm3 (4.0-10.0)
[2018-09-09] MEDS ORDERED: PT OWN MED DRAWER 7, Y5N ONE (08:48)
[2018-09-09 09:46] VITALS: BP 126/69; PULSE 86; TEMP 98
[2018-09-09] MEDS ORDERED: APIXABAN 5 MG TABLET PO SCH (10:00)
[2018-09-09] MEDS: PANTOPRAZOLE 20 MG TABLET (FP) PO SCH (10:01)
--- NOTE | 2018-09-09 11:40 | PN ---
Progress Note (short form) - Note Progress Note: Chief Complaint: sob, palpit History of Present Illness: no palps, dyspnea, chest pain, edema. Current Medications Generic Name Dose Route Start Last Admin Trade Name Freq PRN Reason Stop Dose Admin Acetaminophen 650 mg 09/02/18 15:39 Tylenol - PO Q4H PRN FEVER Apixaban 5 mg 09/09/18 10:00 09/09/18 10:01 Eliquis - PO 5 mg BID [facility] Administration Atorvastatin Calcium 10 mg 09/02/18 22:00 09/08/18 22:44 Lipitor - PO 10 mg HS [facility] Administration Diltiazem HCl 360 mg 09/09/18 10:00 09/09/18 10:01 Cardizem Cd - PO 360 mg DAILY [facility] Administration Sodium Chloride 1,000 mls @ 83 mls/hr 09/08/18 10:32 09/08/18 10:55 Normal Saline - IV 83 mls/hr ASDIR [facility] Administration Insulin Aspart 1 vial 09/07/18 16:30 09/09/18 06:13 Novolog Vial Sliding Scale - SQ 1 units ACHS [facility] Administration Protocol Levothyroxine Sodium 112 mcg 09/03/18 07:00 09/09/18 06:13 Synthroid - PO 112 mcg DAILY@0700 [facility] Administration Metoprolol Tartrate 5 mg 09/03/18 11:09 09/08/18 10:18 Lopressor Injection - IVPUSH 5 mg Q4H PRN Administration TACHYCARDIA Pantoprazole Sodium 20 mg 09/08/18 22:00 09/09/18 10:01 Protonix - PO 20 mg BID [facility] Administration Propranolol HCl 60 mg 09/05/18 18:12 09/09/18 06:13 Inderal - PO 60 mg TID [facility] Administration - Objective Vital Signs Period Temp Pulse Resp BP Sys/Crandall Pulse Ox Last 24 Hr 97.7 F-98.8 F 18-87 16-69 110-147/58-75 96-98 Constitutional: Yes: No Distress, Calm Eyes: No: Sclera Icterus HENT: No: Nasal Congestion Cardiovascular: Yes: Pulse Irregular, S1, S2, Other (PMI non diplaced). No: Gallop, Murmur Respiratory: Yes: CTA Bilaterally. No: Accessory Muscle Use, Rales, Wheezes Gastrointestinal: Yes: Normal Bowel Sounds, Soft. No: Tenderness Musculoskeletal: Yes: Other (No kyphosis) Extremities: No: Cold Edema: No Integumentary: No: Jaundice Neurological: Yes: Alert, Oriented (x3) Psychiatric: No: Agitated EKG: afib rate 79 bpm, no ischemic changes CXR: no acute process echo 08/2018 mild conc LVH, nl LV function EF 60-65%, nl RV function, LA/RA mod dilated, mod MR, mod TR, PASP at lest 54 mmHg, mild ao sclerosis, mild AR, tele: AF, rate controlled a/p: 78F h/o anemia, hypothyroidism, DM, HLD, HTN p/w weakness, palps, dyspnea. afib - rapid HR treated with diltiazem 60 mg PO Q6H, metoprolol succinate 50 mg BID ( increased dose on 09/04). - HR trend improved overall, though remains suboptimal and expect will be uncontrolled once out of hospital and active. diltiazem increased to 300 mg daily on 09/05, metoprolol changed to propranolol 60 mg TID with rate improved -09/08: colonoscopy postponed this AM due to rvr. Will increase po dilt to 360 and give iv lopressor push as well. -09/09: rate controlled, continue current meds - [id number] 5 - foc/egd unremarkable, resume eliquis when possible elevated trop - EKG no ischemic changes, trop indeterminate range with flat trend - not c/w ACS - echo nl LV function Shortness of breath, right arm pain, elevated BNP - BNP slightly elevated 1900 (no priors). CXR clear - euvolemic on exam--deferring lasix - echo nl LV function - sx's likely were due to afib--now resolved with rate controlled anemia - H/H 8.7/27.5->7.7/24.2 day after admission - has not been worked up in the past - cont eliquis, discussed with Dr. Haley - IV iron infusion, considering GI workup patient has refused in the past, d/w patient importance of anemia workup given indication for AC - counts stable - d/w'd pt her estimated risk of CVA, and risk of bleeding if has underlying GI tract source. explained that her chronic anemia for many yrs (? B12 injections in past) has apparently worsened, which is why dr stephens referred her for GI scopes. she states she refused procedure b/c was to be done in office setting, and more comfortable having it done in hospital. - agrees to GI w/u here-->had foc/egd here HTN - stopped home quinapril, monitoring on propranolol and diltiazem - bp controlled - same plan HLD - cont statin DM: -per hospitalist cardiac cohen stable
--- NOTE | 2018-09-09 12:14 | DS ---
Physical Exam: SUBJECTIVE: Patient seen and examined, no chest pain, palpitations, dyspnea or dizziness. No dark or bloody stools. OBJECTIVE: Vital Signs Period Temp Pulse Resp BP Sys/Crandall Pulse Ox Last 24 Hr 97.7 F-98.8 F 18-87 16-69 110-147/58-75 96-98 Intake & Output 09/06/18 09/07/18 09/08/18 09/09/18 23:59 23:59 23:59 23:59 Intake Total 1474 1787 1877 450 Balance 1474 1787 1877 450 PHYSICAL EXAM GENERAL: The patient is awake, alert, and fully oriented, in no acute distress. HEAD: Normal with no signs of trauma. EYES: PERRL, extraocular movements intact, sclera anicteric, pos pallor ENT: Ears normal, nares patent, oropharynx clear without exudates, moist mucous membranes. NECK: Trachea midline, full range of motion, supple. LUNGS: Breath sounds equal, clear to auscultation bilaterally, no wheezes, no crackles, no accessory muscle use. HEART: S1S2 irregularly irregular ABDOMEN: Soft, nontender, nondistended, normoactive bowel sounds, no guarding, no rebound, no hepatosplenomegaly, no masses. EXTREMITIES: 2+ pulses, warm, well-perfused, no edema. NEUROLOGICAL: Cranial nerves II through XII grossly intact. Normal speech, gait not observed. PSYCH: Normal mood, normal affect. SKIN: Warm, dry, normal turgor, no rashes or lesions noted. LABS Laboratory Results - last 24 hr 09/08/18 09/08/18 09/08/18 17:02 18:30 22:45 WBC RBC Hgb Hct MCV MCH MCHC RDW Plt Count MPV PTT (Actin FS) POC Glucometer 147 303 Blood Type A POSITIVE Antibody Screen Negative Crossmatch See Detail 09/09/18 09/09/18 09/09/18 05:30 05:30 05:48 WBC 4.8 RBC 3.67 Hgb 8.7 L Hct 28.5 L MCV 77.5 L MCH 23.8 L MCHC 30.7 L RDW 18.6 H Plt Count 184 MPV 10.4 PTT (Actin FS) 30.5 POC Glucometer 159 Blood Type Antibody Screen Crossmatch 2D echo: EF 60-65%, LA and RA moderately dilated, moderate mitral regurgitation, moderate Tricuspid regurgitation, PA systolic pressure 54 mm hg, mild aortic regurgitation HOSPITAL COURSE: Date of Admission:09/02/18 Date of Discharge: 09/09/18 Minutes to complete discharge: 40 Discharge Summary Reason For Visit: ATRIAL FIBRILLATION,NSTEMI Current Active Problems Anemia (Acute) Atrial fibrillation (Acute) Diabetes (Acute) HLD (hyperlipidemia) (Acute) HTN (hypertension) (Acute) Hypothyroid (Acute) Lupus (Acute) Microcytic anemia (Acute) NSTEMI (non-ST elevated myocardial infarction) (Acute) Hospital Course: 78 yof with PMHxof HTN, HLD, NIDDM, hypothyroidism, lupus (dormant), anemia, sent from PCP's office with new onset atrial fibrillation. Patient was placed on telemetry. Cardiology was consulted, and she is started on cardizem and propronolol that were titrated up. She continued to stay in atrial fibrillation with controlled rate 70s-80s prior to discharge. She had 2D echo with result as above, EF 60-65%. She was placed on heparin drip for her atrial fibrillation pending GI work up. She was also noted with iron deficiency anemia. She received IV iron and 1 unit PRBC during her stay. Her hemoglobin was low but overall stable with no gross evidence of bleed and responded appropriately to the transfusion. Gastroenterology was consulted and she had EGD showing gastric erosions and gastritis, she is placed on protonix and biopsies including H. Pylori have been sent. She had colonoscopy showing diverticulosis and anal and rectal polyp and biopsies have been sent. No active bleed was noted. She is advised to avoid NSAIDs, continue Protonix and follow up outpatient for capsule endoscopy and biopsy results. She was cleared by gastroenterology for anti-coagulation. Eliquis was not covered by her insurance and after discussion with cardiology, she is started on xarelto. She will be discharged home in stable condition with outpatient follow up with cardiology, gastroenterology and hematology. Condition: Stable - Instructions Diet, Activity, Other Instructions: You were admitted with irregular rhythm "atrial fibrillation" and your medications were adjusted. You were also found with low blood count "anemia" and had EGD and colonoscopy done showing some erosions and inflammation in stomach and polyps in the colon. Your biopsy results are currently pending. You also received 1 unit blood and IV iron. Your blood counts have improved and will need monitoring with your doctor. MEDICATIONS: Start following new medications: Cardizem CD 360 mg daily Propranolol 60 mg 3 times daily Protonix 40 mg daily Ferrous Sulphate 325 mg daily Xarelto 20 mg daily with evening meals STOP: Atenolol Naproxyn Aspirin Quinapril Continue other medications including for diabetes as listed. FOLLOW UP: With Dr. Putnam in 1 week With manager transport Dr. Ojeda in 1 week With environmental services coordinator Dr. Carr in 1 week (please discuss biopsy results and H. pylori testing results, which are currently pending and further plan including capsule endoscopy) You are also advised follow up with job site supervisor (blood specialist) for your anemia. (information provided) Blood work CBC (complete blood count) in 1 week with your doctor. Do not take Naproxen, Ibuprofen, or any other NSAIDs without discussion with your doctor. You are started on new blood thinner xarelto. Please monitor for any dark or bloody stools or bleeding that does not stop, in which come to ED or call 911 right away. Also before any procedure, you will need to notify your doctor about being on blood thinner. Weigh yourself daily and notify your doctor if weight gain > 3 lbs in 2 days. Please note that you are started on iron pills that can cause constipation If you notice any dizziness, chest pain, palpitations, trouble breathing, weight gain, dark or bloody stools or bleeding that does not stop, please call 911 or come to ED right away. Referrals: Alessandro Carr DO [Staff Physician] - Manjeet Ojeda MD [Staff Physician] - Yony Garcia MD [Staff Physician] - Cyrus Putnam MD [Primary Care Provider] - Disposition: HOME - Home Medications Comprehensive Discharge Medication List: Ambulatory Orders Cyclobenzaprine HCl [Flexeril -] 10 mg PO TID PRN #21 tablet 10/12/14 Glimepiride 4 mg PO ASDIR 10/12/14 Levothyroxine [Synthroid -] 112 mcg PO DAILY 10/12/14 Simvastatin [Zocor -] 20 mg PO HS 10/12/14 metFORMIN HCL [Glucophage] 1,000 mg PO BID 10/12/14 Oxycodone HCl/Acetaminophen [Percocet 5-325 mg Tablet] 1 combo PO Q6H PRN #14 tablet 10/19/14 Diltiazem Cd [Cardizem Cd -] 360 mg PO DAILY #60 cap.cd.24h 09/09/18 Pantoprazole Sodium [Protonix] 40 mg PO DAILY #30 tablet.dr 09/09/18 Propranolol HCl 60 mg PO TID #90 tablet 09/09/18 Rivaroxaban [Xarelto -] 20 mg PO DAILY #30 tablet 09/09/18 This patient is new to me today: No Emergency Visit: Yes ED Registration Date: 09/02/18 Care time: The patient presented to the Emergency Department on the above date and was hospitalized for further evaluation of their emergent condition. Critical Care patient: No - Discharge Referral Referred to [facility] No
[2018-09-09 12:25] VITALS: BMI 32.8
--- NOTE | 2018-09-12 15:45 | PATH ---
Surgical Pathology Report Patient Name: DELBERT BLOOM [facility]. Rec. #: [id number] /Age/Gender: 1940 (Age: 78) / F Account: [id number] Location: 4 W TELEMETRY U Taken: 09/08/2018 Received: 09/09/2018 Reported: 09/12/2018 Physicians: David Gerber M.D. Specimen(s) Received A: ANTRUM B: BODY C: DESCENDING COLON POLYP D: RECTAL POLYP Clinical History Anemia Postoperative diagnosis: Gastritis, antral erosions, diverticulosis, colon polyps, hemorrhoids Final Diagnosis A. STOMACH, ANTRAL EROSIONS, BIOPSY: GASTRIC ANTRAL MUCOSA WITH MODERATE CHRONIC ACTIVE GASTRITIS. IMMUNOHISTOCHEMICAL STAIN FOR H. PYLORI IS POSITIVE (RARE). B. STOMACH, BODY, GASTRITIS, BIOPSY: GASTRIC BODY MUCOSA WITH SEVERE CHRONIC ACTIVE GASTRITIS. IMMUNOHISTOCHEMICAL STAIN FOR H. PYLORI IS POSITIVE (MANY). C. DESCENDING COLON, POLYP, BIOPSY: TUBULAR ADENOMA. D. RECTUM, POLYP, BIOPSY: TUBULAR ADENOMA. Electronically Signed Shannan Erwin M.D. Gross Description A. Received in formalin, labeled "biopsy antral erosions" are 3 goode, irregular portions of soft tissue ranging from 0.3-0.5 cm. in greatest dimension. The specimens are submitted in toto in one cassette. B. Received in formalin, labeled "biopsy body of stomach gastritis" are 5 goode, irregular portions of soft tissue ranging from 0.2-0.4 cm. in greatest dimension. The specimens are submitted in toto in one cassette. C. Received in formalin, labeled "polyp descending colon" are 2 goode, irregular portions of soft tissue measuring 0.2 and 0.3 cm. in greatest dimension. The specimens are submitted in toto in one cassette. D. Received in formalin, labeled "polyp rectum" are 3 goode, irregular portions of soft tissue ranging from 0.2-0.3 cm. in greatest dimension. The specimens are submitted in toto in one cassette. DL09/09/2018 saudi09/09/2018
== END 2018-09-09 13:00 | disposition home or self-care (01) | DRG 308 ==
LOC: JER 12:08 → JERBED 14:01 → J4W 19:40
PROVIDERS: ADMIT Internal Medicine; ATTEND Hospitalist
PROC: 0DBP8ZX Excision of Rectum, Via Natural or Artificial Opening Endoscopic, Diagnostic (ICD-10-PCS; 2018-09-08)
PROC: 0DD68ZX Extraction of Stomach, Via Natural or Artificial Opening Endoscopic, Diagnostic (ICD-10-PCS; 2018-09-08)
PROC: 30233N1 Transfusion of Nonautologous Red Blood Cells into Peripheral Vein, Percutaneous Approach (ICD-10-PCS; 2018-09-08)
PROC: 0DBM8ZX Excision of Descending Colon, Via Natural or Artificial Opening Endoscopic, Diagnostic (ICD-10-PCS; principal; 2018-09-08 09:00)
DX: I48.91 Unspecified atrial fibrillation (principal); K25.4 Chronic or unspecified gastric ulcer with hemorrhage; I10 Essential (primary) hypertension; E11.9 Type 2 diabetes mellitus without complications; E78.5 Hyperlipidemia, unspecified; D50.9 Iron deficiency anemia, unspecified; E83.42 Hypomagnesemia; E03.9 Hypothyroidism, unspecified; K57.30 Diverticulosis of large intestine without perforation or abscess without bleeding; D12.4 Benign neoplasm of descending colon; D12.8 Benign neoplasm of rectum; K64.8 Other hemorrhoids; M32.9 Systemic lupus erythematosus, unspecified; I25.10 Atherosclerotic heart disease of native coronary artery without angina pectoris; Z79.84 Long term (current) use of oral hypoglycemic drugs; D50.8 Other iron deficiency anemias; Z53.09 Procedure and treatment not carried out because of other contraindication; I36.1 Nonrheumatic tricuspid (valve) insufficiency; I34.0 Nonrheumatic mitral (valve) insufficiency; Z88.0 Allergy status to penicillin
CPT/HCPCS: 36415; 36430; 36511; 71045-TC-FY; 80048; 80053; 80061; 80076; 82272; 82550; 82607; 82728; 82962; 83010; 83540; 83550; 83721; 83735; 83880; 84100; 84439; 84443; 84484; 85025; 85027; 85044; 85610; 85730; 86850; 86900; 86901; 86922; 88305-TC; 93005; 93010; 93306-TC; 99284-25; J1644; J1756; J7030; P9038; P9058

== ENCOUNTER 2021-06-10 10:31 | Inpatient (IN) | payer OTHER ==
[2021-06-10] MEDS: ALBUTEROL SO4 2.5/IPRATROPIUM 0.5 INH SOL 3 ML VIAL.NEB. NEB SCH ×5 (12:30→21:09)
[2021-06-10] MEDS ORDERED: SODIUM CHLORIDE 0.9% 500 ML INFUS.BAG IV ONE (12:56)
[2021-06-10] MEDS ORDERED: AZITHROMYCIN IVPB 250 MG in DEXTROSE 5%-WATER - 250 ML IVPB ONE (13:01)
[2021-06-10] MEDS ORDERED: CEFTRIAXONE 1 GM in DEXTROSE 5%-WATER - 50 ML IVPB ONE (13:01)
[2021-06-10 13:43] LABS: BASO % 0.8 % (0-2.0); EOS % 2.9 % (0-4.5); HEMATOCRIT 31.8 % (32.4-45.2); HEMOGLOBIN 10.6 GM/dL (10.7-15.3); LYMPH % 11.1 % (8-40); MCH 30.5 pg (25.7-33.7); MCHC 33.5 g/dl (32.0-36.0); MEAN CELL VOLUME 91.2 fl (80-96); MEAN PLT VOLUME 9.9 fl (7.5-11.1); NEUT % 76.2 % (42.8-82.8); PLATELET COUNT 187 10^3/uL (134-434); RBC 3.49 M/mm3 (3.60-5.2); RDW 14.4 % (11.6-15.6)
[2021-06-10] MEDS ORDERED: AZITHROMYCIN IVPB 500 MG/250 ML BAG IVPB ONE (14:03)
[2021-06-10 14:04] LABS: CHLORIDE 105 mmol/L (98-107); SODIUM 138 mmol/L (136-145)
[2021-06-10 14:08] LABS: ALBUMIN 3.3 g/dl (3.4-5.0); CALCIUM 8.4 mg/dL (8.5-10.1)
[2021-06-10 14:09] LABS: ANION GAP 5 MMOL/L (8-16); BLOOD UREA NITROGEN 15.9 mg/dL (7-18); CO2 28 mmol/L (21-32); GLUCOSE,RANDOM 146 mg/dL (74-106)
[2021-06-10 14:12] LABS: CREATININE 0.8 mg/dL (0.55-1.3); SGOT/AST 25 U/L (15-37); SGPT/ALT 20 U/L (13-61)
[2021-06-10 14:13] LABS: BILIRUBIN,TOTAL 0.7 mg/dL (0.2-1); LDH 296 U/L (84-246); TOT PROT 6.8 g/dl (6.4-8.2)
[2021-06-10 14:14] LABS: ALK PHOS 64 U/L (45-117)
[2021-06-10] MEDS ORDERED: PT OWN MED DRAWER 7, Y5N ONE (16:17)
[2021-06-10] MEDS ORDERED: LISINOPRIL 5 MG TABLET ONE (17:10)
[2021-06-10] MEDS: INSULIN SLIDING SCALE (NOVOLOG) 1 VIAL SQ SCH ×2 (18:06→23:01)
[2021-06-10] MEDS: LISINOPRIL 5 MG TABLET PO SCH (18:06)
[2021-06-10] MEDS ORDERED: ALBUTEROL SO4 2.5/IPRATROPIUM 0.5 INH SOL 3 ML VIAL.NEB. NEB ONE (21:02)
[2021-06-10] MEDS ORDERED: APIXABAN 2.5 MG TABLET ONE (22:44)
[2021-06-10] MEDS: APIXABAN 2.5 MG TABLET PO SCH (22:57)
[2021-06-10] MEDS: ROSUVASTATIN CA 5 MG TABLET PO SCH (22:57)
[2021-06-11 01:32] VITALS: BMI 29.7
[2021-06-11] MEDS: INSULIN SLIDING SCALE (NOVOLOG) 1 VIAL SQ SCH ×4 (06:13→21:34)
[2021-06-11] MEDS: ALBUTEROL SO4 2.5/IPRATROPIUM 0.5 INH SOL 3 ML VIAL.NEB. NEB SCH ×4 (08:10→20:07)
[2021-06-11] MEDS ORDERED: cefTRIAXone SODIUM 1 GM VIAL ONE (09:17)
[2021-06-11] MEDS ORDERED: DEXTROSE 5%-WATER - 50 ML IVPB ONE (09:17)
[2021-06-11 09:44] LABS: BASO % 0.2 % (0-2.0); EOS % 0.3 % (0-4.5); HEMOGLOBIN 9.5 GM/dL (10.7-15.3); LYMPH % 20.8 % (8-40); MCH 30.7 pg (25.7-33.7); MCHC 33.8 g/dl (32.0-36.0); MEAN CELL VOLUME 90.8 fl (80-96); MONO % 8.8 % (3.8-10.2); NEUT % 69.9 % (42.8-82.8); PLATELET COUNT 172 10^3/uL (134-434); RBC 3.09 M/mm3 (3.60-5.2); RDW 14.5 % (11.6-15.6)
[2021-06-11 10:12] LABS: CALCIUM 7.9 mg/dL (8.5-10.1)
[2021-06-11 10:13] LABS: ALBUMIN 2.9 g/dl (3.4-5.0); BLOOD UREA NITROGEN 13.2 mg/dL (7-18); MAGNESIUM 1.9 mg/dL (1.8-2.4)
[2021-06-11 10:15] LABS: TOT PROT 5.8 g/dl (6.4-8.2)
[2021-06-11 10:16] LABS: BILIRUBIN,TOTAL 0.6 mg/dL (0.2-1); CREATININE 0.7 mg/dL (0.55-1.3)
[2021-06-11] MEDS: APIXABAN 2.5 MG TABLET PO SCH (10:45)
[2021-06-11] MEDS: FUROSEMIDE 40 MG TABLET (FP) PO SCH (10:45)
[2021-06-11] MEDS: LISINOPRIL 5 MG TABLET PO SCH (10:45)
[2021-06-11] MEDS: CEFTRIAXONE 1 GM in DEXTROSE 5%-WATER - 50 ML IVPB SCH (10:48)
[2021-06-11] MEDS ORDERED: PT OWN MED DRAWER 7, Y5N ONE (11:35)
[2021-06-11] MEDS: AZITHROMYCIN IVPB 500 MG/250 ML BAG IVPB SCH (11:49)
[2021-06-11] MEDS ORDERED: INSULIN (NOVOLOG) ASPART 100 UNITS/ML 10ML VIAL ONE (21:30)
[2021-06-11] MEDS: ROSUVASTATIN CA 5 MG TABLET PO SCH (21:34)
[2021-06-11] MEDS: APIXABAN 5 MG TABLET PO SCH (21:34)
[2021-06-11] MEDS ORDERED: APIXABAN 2.5 MG TABLET PO SCH (22:00)
[2021-06-12] MEDS: LEVOTHYROXINE NA 125 MCG TABLET (FP) PO SCH (06:21)
[2021-06-12] MEDS: INSULIN SLIDING SCALE (NOVOLOG) 1 VIAL SQ SCH ×4 (06:21→22:34)
[2021-06-12] MEDS: ALBUTEROL SO4 2.5/IPRATROPIUM 0.5 INH SOL 3 ML VIAL.NEB. NEB SCH ×4 (08:25→20:10)
[2021-06-12 09:25] LABS: HEMATOCRIT 29.8 % (32.4-45.2); HEMOGLOBIN 10.1 GM/dL (10.7-15.3); MCH 30.7 pg (25.7-33.7); MCHC 33.9 g/dl (32.0-36.0); MEAN CELL VOLUME 90.6 fl (80-96); MEAN PLT VOLUME 9.7 fl (7.5-11.1); PLATELET COUNT 176 10^3/uL (134-434); RBC 3.29 M/mm3 (3.60-5.2); RDW 14.2 % (11.6-15.6); WHITE BLOOD COUNT 3.8 K/mm3 (4.0-10.0)
[2021-06-12 09:36] LABS: CALCIUM 8.2 mg/dL (8.5-10.1)
[2021-06-12] MEDS ORDERED: cefTRIAXone SODIUM 1 GM VIAL ONE (09:36)
[2021-06-12] MEDS ORDERED: DEXTROSE 5%-WATER - 50 ML IVPB ONE (09:36)
[2021-06-12 09:37] LABS: BLOOD UREA NITROGEN 9.3 mg/dL (7-18); MAGNESIUM 2.1 mg/dL (1.8-2.4)
[2021-06-12 09:40] LABS: CREATININE 0.7 mg/dL (0.55-1.3)
[2021-06-12] MEDS ORDERED: FUROSEMIDE 40 MG/4 ML INJECTABLE VIAL IVPUSH ONE (10:27)
[2021-06-12] MEDS: APIXABAN 5 MG TABLET PO SCH ×2 (13:03→22:34)
[2021-06-12] MEDS: LISINOPRIL 5 MG TABLET PO SCH (13:04)
[2021-06-12] MEDS: AZITHROMYCIN IVPB 500 MG/250 ML BAG IVPB SCH (13:05)
[2021-06-12] MEDS: FUROSEMIDE 40 MG TABLET (FP) PO SCH (13:06)
[2021-06-12] MEDS: CEFTRIAXONE 1 GM in DEXTROSE 5%-WATER - 50 ML IVPB SCH (13:06)
[2021-06-12] MEDS ORDERED: INSULIN (NOVOLOG) ASPART 100 UNITS/ML 10ML VIAL ONE (13:14)
[2021-06-12 15:44] LABS: IRON SERUM 44 ug/dL (50-175); TOTAL IRON BINDING CAPACITY 296 ug/dL (250-450)
[2021-06-12] MEDS: ROSUVASTATIN CA 5 MG TABLET PO SCH (22:33)
[2021-06-13] MEDS: LEVOTHYROXINE NA 125 MCG TABLET (FP) PO SCH (06:07)
[2021-06-13] MEDS: INSULIN SLIDING SCALE (NOVOLOG) 1 VIAL SQ SCH ×2 (06:07→11:48)
[2021-06-13 06:40] VITALS: BP 145/64; PULSE 71; TEMP 98
[2021-06-13] MEDS: ALBUTEROL SO4 2.5/IPRATROPIUM 0.5 INH SOL 3 ML VIAL.NEB. NEB SCH ×3 (08:40→16:00)
[2021-06-13] MEDS ORDERED: DEXTROSE 5%-WATER - 50 ML IVPB ONE (08:58)
[2021-06-13] MEDS ORDERED: cefTRIAXone SODIUM 1 GM VIAL ONE (08:58)
[2021-06-13 10:05] LABS: HEMATOCRIT 30.8 % (32.4-45.2); HEMOGLOBIN 10.3 GM/dL (10.7-15.3); MCH 30.4 pg (25.7-33.7); MCHC 33.5 g/dl (32.0-36.0); MEAN CELL VOLUME 90.8 fl (80-96); MEAN PLT VOLUME 9.8 fl (7.5-11.1); PLATELET COUNT 184 10^3/uL (134-434); RBC 3.39 M/mm3 (3.60-5.2); RDW 14.3 % (11.6-15.6); WHITE BLOOD COUNT 3.3 K/mm3 (4.0-10.0)
[2021-06-13] MEDS: APIXABAN 5 MG TABLET PO SCH (10:32)
[2021-06-13] MEDS: FUROSEMIDE 40 MG TABLET (FP) PO SCH (10:33)
[2021-06-13] MEDS: CEFTRIAXONE 1 GM in DEXTROSE 5%-WATER - 50 ML IVPB SCH (10:33)
[2021-06-13] MEDS: LISINOPRIL 5 MG TABLET PO SCH (10:34)
[2021-06-13 10:35] LABS: BLOOD UREA NITROGEN 11.8 mg/dL (7-18); CALCIUM 8.3 mg/dL (8.5-10.1)
[2021-06-13 10:38] LABS: CREATININE 0.7 mg/dL (0.55-1.3)
[2021-06-13] MEDS ORDERED: PT OWN MED DRAWER 7, Y5N ONE (15:40)
== END 2021-06-13 18:22 | disposition home or self-care (01) | DRG 195 ==
LOC: JER 10:31 → JERBED 12:59 → J8W 06-11 00:07
PROVIDERS: ADMIT Internal Medicine; ATTEND Internal Medicine
DX: J18.9 Pneumonia, unspecified organism (principal); D64.9 Anemia, unspecified; E03.9 Hypothyroidism, unspecified; E11.9 Type 2 diabetes mellitus without complications; I10 Essential (primary) hypertension; E78.5 Hyperlipidemia, unspecified; Z79.01 Long term (current) use of anticoagulants; Z79.84 Long term (current) use of oral hypoglycemic drugs; I48.0 Paroxysmal atrial fibrillation; R09.02 Hypoxemia
CPT/HCPCS: 36415; 71045-TC-FY; 80048; 80053; 82550; 82728; 82962; 83540; 83550; 83605; 83615; 83735; 84100; 84484; 85025; 85027; 85379; 86140; 87804; 93005; 93010; 94010; 94640; 97116-GP; 97161-GP; 99285-25; C9803; U0003; U0005

== ENCOUNTER 2023-02-22 09:23 | Emergency (ER) | payer OTHER ==
[2023-02-22 09:36] VITALS: RESP 18; BMI 29.8
[2023-02-22] MEDS ORDERED: KETOROLAC TROMETHAMINE 30 MG/1 ML VIAL IM ONE (10:56)
[2023-02-22] MEDS ORDERED: KETOROLAC TROMETHAMINE 30 MG/1 ML VIAL ONE (11:08)
[2023-02-22] MEDS ORDERED: LIDOCAINE 5% TOPICAL PATCH TP ONE (11:24)
[2023-02-22 11:33] LABS: BASO % 0.7 % (0-2.0); EOS % 5.4 % (0-4.5); HEMATOCRIT 36.3 % (32.4-45.2); HEMOGLOBIN 12.6 GM/dL (10.7-15.3); MCH 30.9 pg (25.7-33.7); MCHC 34.6 g/dl (32.0-36.0); MEAN CELL VOLUME 89.4 fl (80-96); MEAN PLT VOLUME 9.2 fl (7.5-11.1); NEUT % 70.9 % (42.8-82.8); PLATELET COUNT 250 10^3/uL (134-434); RBC 4.06 M/mm3 (3.60-5.2); RDW 14.8 % (11.6-15.6); WHITE BLOOD COUNT 6.3 K/mm3 (4.0-10.0)
[2023-02-22] MEDS ORDERED: LIDOCAINE 5% TOPICAL PATCH ONE (11:36)
[2023-02-22 11:39] LABS: EPI CELLS 10 /uL (0-25.1); HYALINE CASTS 0 /uL (0-3.1); PH,URINE 5.5 (5.0-8.0); URINE APPEARANCE CLEAR; URINE BACTERIA 16 /uL (0-1359); URINE BILIRUBIN NEGATIVE (NEGATIVE); URINE COLOR YELLOW; URINE GLUCOSE (UA) NEGATIVE (NEGATIVE); URINE KETONE NEGATIVE (NEGATIVE); URINE LEUK ESTERASE TRACE (NEGATIVE); URINE NITRITE NEGATIVE (NEGATIVE); URINE PROTEIN NEGATIVE (NEGATIVE); URINE RBC 5 /uL (0-23.9); URINE UROBILINOGEN 0.2 mg/dL (0.2-1.0); URINE WBC 16 /uL (0-25.8)
[2023-02-22 11:53] LABS: POTASSIUM 4.9 mmol/L (3.5-5.1)
[2023-02-22 11:55] LABS: ALBUMIN 3.9 g/dl (3.4-5.0); CALCIUM 8.8 mg/dL (8.5-10.1)
[2023-02-22 11:56] LABS: BLOOD UREA NITROGEN 20.2 mg/dL (7-18)
[2023-02-22 11:59] LABS: CREATININE 1.1 mg/dL (0.55-1.3)
[2023-02-22 12:00] LABS: TOT PROT 7.2 g/dl (6.4-8.2)
[2023-02-22 12:01] LABS: BILIRUBIN,TOTAL 0.8 mg/dL (0.2-1)
[2023-02-22 15:21] VITALS: BP 139/59; PULSE 70; TEMP 98
[2023-02-22] MEDS ORDERED: LIDOCAINE PATCH REMOVAL MC ONE (22:00)
== END 2023-02-22 16:39 | disposition home or self-care (01) ==
LOC: JER 09:23
PROC: 3E0233Z Introduction of Anti-inflammatory into Muscle, Percutaneous Approach (ICD-10-PCS; principal; 2023-02-22)
DX: M54.50 Low back pain, unspecified (principal); S32.030A Wedge compression fracture of third lumbar vertebra, initial encounter for closed fracture; X50.0XXA Overexertion from strenuous movement or load, initial encounter
CPT/HCPCS: 36415; 72100-TC-FY; 72131-TC; 80053; 81003; 85025; 87086; 99285-25

== ENCOUNTER 2023-06-21 09:42 | Emergency (ER) | payer OTHER ==
[2023-06-21 09:50] VITALS: TEMP 98.7; BMI 29.2
[2023-06-21] MEDS: ACETAMINOPHEN 1000 MG/100 ML BAG IVPB ONE (10:56)
[2023-06-21] MEDS ORDERED: ACETAMINOPHEN INJECTION 100 ML IVPB ONE (10:57)
[2023-06-21 11:08] LABS: INR 2.11 (0.83-1.09); PROTHROMBIN TIME (PATIENT) 24.3 SEC (9.7-13.0)
[2023-06-21 11:24] LABS: ALBUMIN 3.7 g/dl (3.4-5.0); BLOOD UREA NITROGEN 17.3 mg/dL (7-18); CALCIUM 9.3 mg/dL (8.5-10.1)
[2023-06-21 11:26] LABS: BASO % 0.4 % (0-2.0); EOS % 3.4 % (0-4.5); HEMATOCRIT 35.3 % (32.4-45.2); HEMOGLOBIN 11.6 GM/dL (10.7-15.3); LYMPH % 9.8 % (8-40); MCH 30.1 pg (25.7-33.7); MEAN CELL VOLUME 91.2 fl (80-96); MEAN PLT VOLUME 9.5 fl (7.5-11.1); MONO % 11.2 % (3.8-10.2); NEUT % 75.2 % (42.8-82.8); PLATELET COUNT 191 10^3/uL (134-434); RBC 3.87 M/mm3 (3.60-5.2); RDW 14.7 % (11.6-15.6); WHITE BLOOD COUNT 3.8 K/mm3 (4.0-10.0)
[2023-06-21 11:27] LABS: CREATININE 0.8 mg/dL (0.55-1.3)
[2023-06-21 11:29] LABS: BILIRUBIN,TOTAL 0.8 mg/dL (0.2-1)
[2023-06-21] MEDS ORDERED: FUROSEMIDE 40 MG/4 ML INJECTABLE VIAL ONE ×2 (13:22→15:50)
[2023-06-21 13:29] VITALS: BP 148/104; PULSE 100; RESP 20
[2023-06-21] MEDS: FUROSEMIDE 40 MG/4 ML INJECTABLE VIAL IVPUSH ONE ×2 (13:29→15:54)
== END 2023-06-21 16:23 | disposition home or self-care (01) ==
LOC: JER 09:42
PROC: 3E033NZ Introduction of Analgesics, Hypnotics, Sedatives into Peripheral Vein, Percutaneous Approach (ICD-10-PCS; principal; 2023-06-21)
PROC: 3E033GC Introduction of Other Therapeutic Substance into Peripheral Vein, Percutaneous Approach (ICD-10-PCS; 2023-06-21)
PROC: 3E033GC Introduction of Other Therapeutic Substance into Peripheral Vein, Percutaneous Approach (ICD-10-PCS; 2023-06-21)
DX: M54.9 Dorsalgia, unspecified (principal); R05.9 Cough, unspecified; R07.9 Chest pain, unspecified; M79.10 Myalgia, unspecified site; R06.02 Shortness of breath; J10.1 Influenza due to other identified influenza virus with other respiratory manifestations; Z20.822 Contact with and (suspected) exposure to COVID-19
CPT/HCPCS: 0241U-QW; 36415; 71045-TC-FY; 80053; 83880; 84484; 85025; 85610; 93005; 93010; 96374; 96375; 99285-25; J0131

== ENCOUNTER 2023-06-27 11:55 | Observation (INO) | payer OTHER ==
[2023-06-27 11:57] VITALS: BMI 29.0
[2023-06-27] MEDS ORDERED: ACETAMINOPHEN 1000 MG/100 ML BAG IVPB ONE ×2 (12:35→13:36)
[2023-06-27] MEDS ORDERED: LACTATED RINGERS SOLUTION 1000 ML INFUS.BAG IV ONE (12:45)
[2023-06-27 13:12] LABS: BASO % 0.4 % (0-2.0); EOS % 2.6 % (0-4.5); HEMATOCRIT 37.1 % (32.4-45.2); HEMOGLOBIN 12.3 GM/dL (10.7-15.3); LYMPH % 23.5 % (8-40); MCHC 33.2 g/dl (32.0-36.0); MEAN CELL VOLUME 90.3 fl (80-96); MEAN PLT VOLUME 9.3 fl (7.5-11.1); MONO % 6.6 % (3.8-10.2); NEUT % 66.9 % (42.8-82.8); PLATELET COUNT 193 10^3/uL (134-434); RBC 4.11 M/mm3 (3.60-5.2); RDW 14.8 % (11.6-15.6); WHITE BLOOD COUNT 4.4 K/mm3 (4.0-10.0)
[2023-06-27 13:30] LABS: POTASSIUM 4.6 mmol/L (3.5-5.1)
[2023-06-27 13:32] LABS: ALBUMIN 3.4 g/dl (3.4-5.0); BLOOD UREA NITROGEN 12.8 mg/dL (7-18); CALCIUM 8.5 mg/dL (8.5-10.1); MAGNESIUM 1.5 mg/dL (1.8-2.4)
[2023-06-27] MEDS ORDERED: MAGNESIUM SULFATE IN WATER 2 GM/50 ML IVPB IVPB ONE ×2 (13:33→14:03)
[2023-06-27 13:35] LABS: CREATININE 0.8 mg/dL (0.55-1.3); PHOSPHOROUS 3.1 mg/dL (2.5-4.9)
[2023-06-27 13:36] LABS: BILIRUBIN,TOTAL 0.6 mg/dL (0.2-1); TOT PROT 6.9 g/dl (6.4-8.2)
[2023-06-27] MEDS: ALBUTEROL SO4 2.5/IPRATROPIUM 0.5 INH SOL 3 ML VIAL.NEB. NEB SCH ×4 (14:00→15:11)
[2023-06-27] MEDS ORDERED: ACETAMINOPHEN INJECTION 100 ML IVPB ONE (14:03)
[2023-06-27] MEDS ORDERED: ALBUTEROL SO4 2.5/IPRATROPIUM 0.5 INH SOL 3 ML VIAL.NEB. NEB ONE (14:03)
[2023-06-27] MEDS ORDERED: OSELTAMIVIR PHOSPHATE 75 MG CAPSULE PO SCH (14:30)
[2023-06-27 14:34] LABS: INR 1.86 (0.83-1.09); PROTHROMBIN TIME (PATIENT) 21.5 SEC (9.7-13.0)
[2023-06-27 14:37] LABS: ACTIVATED PTT 33.1 SECONDS (25.2-36.5)
[2023-06-27] MEDS ORDERED: OSELTAMIVIR PHOSPHATE 75 MG CAPSULE ONE (14:52)
[2023-06-27] MEDS ORDERED: LEVALBUTEROL HCL 0.63 MG/3 ML VIAL.NEB. IH PRN (14:53)
[2023-06-27] MEDS ORDERED: ACETAMINOPHEN 325 MG TABLET (FP) PO PRN (15:10)
[2023-06-27] MEDS ORDERED: predniSONE 20 MG TABLET (UD) ONE (15:58)
[2023-06-27] MEDS ORDERED: LISINOPRIL 5 MG TABLET ONE (15:58)
[2023-06-27] MEDS ORDERED: FUROSEMIDE 40 MG TABLET (FP) ONE (15:58)
[2023-06-27] MEDS: LISINOPRIL 5 MG TABLET PO SCH (16:00)
[2023-06-27] MEDS: predniSONE 20 MG TABLET (UD) PO SCH (16:08)
[2023-06-27] MEDS: FUROSEMIDE 40 MG TABLET (FP) PO SCH (16:08)
[2023-06-27] MEDS ORDERED: ROSUVASTATIN CA 5 MG TABLET ONE (20:54)
[2023-06-27] MEDS ORDERED: APIXABAN 5 MG TABLET ONE (20:54)
[2023-06-27] MEDS: APIXABAN 5 MG TABLET PO SCH (21:00)
[2023-06-27] MEDS ORDERED: ROSUVASTATIN CA 5 MG TABLET PO SCH (22:00)
[2023-06-27] MEDS ORDERED: OSELTAMIVIR PHOSPHATE 45 MG CAPSULE PO SCH (22:00)
[2023-06-28] MEDS ORDERED: LEVOTHYROXINE NA 112 MCG TABLET (FP) PO SCH (07:00)
[2023-06-28 07:51] LABS: BASO % 0.2 % (0-2.0); EOS % 0.1 % (0-4.5); HEMATOCRIT 37.4 % (32.4-45.2); HEMOGLOBIN 12.3 GM/dL (10.7-15.3); LYMPH % 21.2 % (8-40); MCH 29.8 pg (25.7-33.7); MEAN CELL VOLUME 90.4 fl (80-96); MEAN PLT VOLUME 9.5 fl (7.5-11.1); MONO % 6.2 % (3.8-10.2); NEUT % 72.3 % (42.8-82.8); PLATELET COUNT 204 10^3/uL (134-434); RBC 4.14 M/mm3 (3.60-5.2); RDW 14.5 % (11.6-15.6); WHITE BLOOD COUNT 3.3 K/mm3 (4.0-10.0)
[2023-06-28 08:10] LABS: POTASSIUM 4.1 mmol/L (3.5-5.1)
[2023-06-28 08:18] LABS: CALCIUM 8.7 mg/dL (8.5-10.1)
[2023-06-28 08:19] LABS: BLOOD UREA NITROGEN 16.5 mg/dL (7-18); MAGNESIUM 1.9 mg/dL (1.8-2.4)
[2023-06-28] MEDS: APIXABAN 5 MG TABLET PO SCH (08:21)
[2023-06-28] MEDS: LISINOPRIL 5 MG TABLET PO SCH (08:22)
[2023-06-28] MEDS: predniSONE 20 MG TABLET (UD) PO SCH (08:22)
[2023-06-28] MEDS: FUROSEMIDE 40 MG TABLET (FP) PO SCH (08:22)
[2023-06-28 08:23] LABS: CREATININE 0.8 mg/dL (0.55-1.3); PHOSPHOROUS 3.9 mg/dL (2.5-4.9)
[2023-06-28] MEDS ORDERED: PANTOPRAZOLE 40 MG TABLET PO SCH (10:00)
[2023-06-28] MEDS ORDERED: OSELTAMIVIR PHOSPHATE 75 MG CAPSULE PO SCH (11:00)
[2023-06-28 11:30] VITALS: TEMP 98
[2023-06-28] MEDS ORDERED: OSELTAMIVIR PHOSPHATE 75 MG CAPSULE ONE (13:43)
[2023-06-28 15:28] VITALS: BP 139/94; PULSE 118; RESP 17
== END 2023-06-28 16:51 | disposition home or self-care (01) ==
LOC: JER 11:55 → JERBED 14:24
PROVIDERS: ADMIT Internal Medicine
PROC: 3E033NZ Introduction of Analgesics, Hypnotics, Sedatives into Peripheral Vein, Percutaneous Approach (ICD-10-PCS; principal; 2023-06-27)
PROC: 3E0F7GC Introduction of Other Therapeutic Substance into Respiratory Tract, Via Natural or Artificial Opening (ICD-10-PCS; 2023-06-27)
PROC: 3E0337Z Introduction of Electrolytic and Water Balance Substance into Peripheral Vein, Percutaneous Approach (ICD-10-PCS; 2023-06-27)
PROC: 3E033GC Introduction of Other Therapeutic Substance into Peripheral Vein, Percutaneous Approach (ICD-10-PCS; 2023-06-27)
DX: J09.X2 Influenza due to identified novel influenza A virus with other respiratory manifestations (principal); B34.9 Viral infection, unspecified; E11.9 Type 2 diabetes mellitus without complications; J45.909 Unspecified asthma, uncomplicated; I48.91 Unspecified atrial fibrillation; E03.9 Hypothyroidism, unspecified; L93.2 Other local lupus erythematosus; Z79.01 Long term (current) use of anticoagulants; E78.5 Hyperlipidemia, unspecified; I50.9 Heart failure, unspecified; I11.0 Hypertensive heart disease with heart failure; Z88.0 Allergy status to penicillin
CPT/HCPCS: 0241U-QW; 36415; 71046-TC-FY; 80048; 80053; 82962; 83735; 84100; 84443; 84484; 85025; 85610; 85730; 93005; 93010; 94640; 96365; 96375; 99285-25; G0378